=== PATIENT | female | born 1955 | race African-American/Black ===

== ENCOUNTER 2016-10-16 02:37 | Emergency (ER) | payer MEDICAID, OTHER ==
[~2016-10-16] VITALS: Ht 160 cm; Wt 84.1 kg
[~2016-10-16 02:37] MED LIST: ALBU18HF2 IH; ALBU6.7H INH; ATROPINE SULFATE EACHEYE; BRIM5DRO EACHEYE; BRIM5DRO RIGHTEYE; TIMOLOL BOTHEYE
[2016-10-16 06:15] LABS: BASOPHILS % 0.8 % (0.0-2.0); EOSINOPHILS % 5.2 % (0.0-5.0); HEMATOCRIT. 33.7 % (36.0-48.0); HEMOGLOBIN. 10.8 g/dL (12.0-16.0); LYMPHOCYTES % 33.4 % (20.0-50.0); MEAN CORPUSCULAR HEMOGLOBIN 27.9 pg (28.0-32.0); MEAN CORPUSCULAR HGB CONC 32.1 g/dL (31.0-37.0); MEAN CORPUSCULAR VOLUME 86.9 fL (81.0-99.0); MEAN PLATELET VOLUME 9.8 fl (7.4-10.4); MONOCYTES % 7.6 % (2.0-8.0); PLATELET 139 x1000/uL (130-400); RED BLOOD CELL COUNT 3.87 mill/uL (4.2-5.4); RED CELL DISTRIBUTION WIDTH 18.9 % (11.6-14.6); WHITE BLOOD COUNT 7.9 x1000/uL (4.5-11.0)
[2016-10-16 06:32] LABS: CHLORIDE 108 mEq/L (98-107); INDEX HEMOLYSI 1 (1-3); INDEX ICTERIC 1 (1-4); INDEX LIPEMIC 1 (1-3)
[2016-10-16 06:38] LABS: ALANINE AMINOTRANSFERASE 18 IU/L (13-61); ALBUMIN 2.9 g/dL (3.4-5.0); ANION GAP 13; CALCIUM 9.2 mg/dL (8.5-10.1); CARBON DIOXIDE 27 mEq/L (21-32); ETHANOL BLOOD < 10 mg/dL; UREA NITROGEN BLOOD 32 mg/dL (7-21)
[2016-10-16 06:40] LABS: eGFR 43 mL/min (>60)
[2016-10-16] MEDS ORDERED: ACETAMINOPHEN 500MG TABLET PO ONE (07:30)
[2016-10-16 07:51] LABS: GLUCOSE URINE NEGATIVE (NEGATIVE); KETONES URINE NEGATIVE (NEGATIVE); LEUKOCYTE ESTERASE URINE NEGATIVE (NEGATIVE); NITRITE URINE NEGATIVE (NEGATIVE); OCCULT BLOOD URINE NEGATIVE (NEGATIVE); PROTEIN URINE 2+ (NEGATIVE); SPECIFIC GRAVITY URINE 1.009 (1.005-1.030); UROBILINOGEN URINE 0.2 E.U./dL (0.2-1.0)
[2016-10-16 07:52] LABS: CLARITY URINE CLEAR (CLEAR); COLOR URINE PALE YELLOW (YELLOW)
[2016-10-16 08:00] LABS: *AMPHETAMINES SCREEN URINE NEGATIVE (NEGATIVE); *BARBITURATES SCREEN URINE NEGATIVE (NEGATIVE); *BENZODIAZEPINES SCREEN URINE NEGATIVE (NEGATIVE); *COCAINE SCREEN URINE NEGATIVE (NEGATIVE); CANNABINOID URINE SCREEN NEGATIVE (NEGATIVE); ECSTASY MDMA SCREEN URINE NEGATIVE (NEGATIVE); METHADONE URINE SCREEN NEGATIVE (NEGATIVE); OPIATES URINE SCREEN NEGATIVE (NEGATIVE); PHENCYCLIDINE URINE SCREEN NEGATIVE (NEGATIVE)
[2016-10-16 08:02] LABS: RBC URINE 0-2 /hpf (0-2); WBC URINE 0-2 /hpf (0-2)
[2016-10-16 08:03] LABS: SQUAMOUS EPITHELIAL CELL URINE FEW /lpf (RARE/1+)
[2016-10-16 08:04] LABS: BACTERIA URINE TRACE
[2016-10-16] MEDS ORDERED: MORPHINE SULFATE 10 MG/ML CPJ IM ONE (08:30)
[2016-10-16] MEDS ORDERED: ONDANSETRON 4MG ODT PO ONE (08:30)
[2016-10-16 09:43] VITALS: BP 162/68
== END 2016-10-16 10:36 | disposition home or self-care (01) ==
LOC: ER 02:37
DX: R51 Headache (principal); G89.29 Other chronic pain; M54.2 Cervicalgia; M54.5 Low back pain; M25.511 Pain in right shoulder; N28.9 Disorder of kidney and ureter, unspecified; D64.9 Anemia, unspecified; J45.909 Unspecified asthma, uncomplicated; Z88.0 Allergy status to penicillin; Z88.8 Allergy status to other drugs, medicaments and biological substances; Z88.5 Allergy status to narcotic agent; Z88.6 Allergy status to analgesic agent; Z88.1 Allergy status to other antibiotic agents
CPT/HCPCS: 36415; 70450; 80053; 80305; 81001; 85025; 96372; 99285; G0482; J2270; Q0162; Z7610

== ENCOUNTER 2017-02-24 12:47 | Emergency (ER) | payer OTHER ==
[~2017-02-24] VITALS: Ht 170.2 cm; Wt 80.0 kg
[2017-02-24] MEDS ORDERED: ONDANSETRON HCL 4MG/2ML VIAL IV STA (22:58)
[2017-02-24] MEDS ORDERED: PANTOPRAZOLE SODIUM 40 MG/VIAL IV STA (22:58)
[2017-02-24] MEDS ORDERED: SODIUM CHLORIDE 0.9% 1,000 ML IV ONE (22:58)
[2017-02-24 23:47] LABS: BASOPHILS % 0.6 % (0.0-2.0); EOSINOPHILS % 4.7 % (0.0-5.0); HEMATOCRIT. 34.9 % (36.0-48.0); HEMOGLOBIN. 11.1 g/dL (12.0-16.0); LYMPHOCYTES % 28.6 % (20.0-50.0); MEAN CORPUSCULAR VOLUME 87.9 fL (81.0-99.0); NEUTROPHILS % 59.1 % (40.0-76.0); PLATELET 160 x1000/uL (130-400); RED BLOOD CELL COUNT 3.97 mill/uL (4.2-5.4); RED CELL DISTRIBUTION WIDTH 16.2 % (11.6-14.6)
[2017-02-24 23:55] LABS: CARBON DIOXIDE 28 mEq/L (21-32); CHLORIDE 110 mEq/L (98-107); ETHANOL BLOOD < 10 mg/dL; TROPONIN I < 0.02 ng/mL (0.00-0.04)
[2017-02-25] MEDS ORDERED: SODIUM CHLORIDE 0.9% 1,000 ML IV ONE (00:56)
[2017-02-25 01:51] LABS: CLARITY URINE CLEAR (CLEAR); COLOR URINE YELLOW (YELLOW); GLUCOSE URINE NEGATIVE (NEGATIVE); KETONES URINE NEGATIVE (NEGATIVE); LEUKOCYTE ESTERASE URINE TRACE (NEGATIVE); NITRITE URINE NEGATIVE (NEGATIVE); OCCULT BLOOD URINE NEGATIVE (NEGATIVE); PROTEIN URINE 3+ (NEGATIVE); SPECIFIC GRAVITY URINE 1.011 (1.005-1.030); UROBILINOGEN URINE 0.2 E.U./dL (0.2-1.0)
[2017-02-25 02:03] LABS: *AMPHETAMINES SCREEN URINE NEGATIVE (NEGATIVE); *BARBITURATES SCREEN URINE NEGATIVE (NEGATIVE); *BENZODIAZEPINES SCREEN URINE NEGATIVE (NEGATIVE); *COCAINE SCREEN URINE NEGATIVE (NEGATIVE); CANNABINOID URINE SCREEN NEGATIVE (NEGATIVE); METHADONE URINE SCREEN NEGATIVE (NEGATIVE); OPIATES URINE SCREEN NEGATIVE (NEGATIVE); PHENCYCLIDINE URINE SCREEN NEGATIVE (NEGATIVE)
[2017-02-25] MEDS ORDERED: AZITHROMYCIN 250 MG TABLET PO NR (02:15)
[2017-02-25] MEDS ORDERED: CEFTRIAXONE 1 G PREMIX 50 ML IV NR (02:15)
[2017-02-25] MEDS ORDERED: CEFTRIAXONE SODIUM 1 G/VIAL IV ONE (02:15)
[2017-02-25 06:17] VITALS: BP 136/88
== END 2017-02-25 07:03 | disposition home or self-care (01) ==
LOC: ER 13:07
DX: K21.9 Gastro-esophageal reflux disease without esophagitis (principal); N39.0 Urinary tract infection, site not specified; E86.0 Dehydration; J69.0 Pneumonitis due to inhalation of food and vomit; N28.9 Disorder of kidney and ureter, unspecified; J45.909 Unspecified asthma, uncomplicated; Z98.890 Other specified postprocedural states; Z88.0 Allergy status to penicillin; Z90.710 Acquired absence of both cervix and uterus
CPT/HCPCS: 36415; 71010; 74176; 80053; 80305; 81001; 83605; 83690; 84484; 85025; 93005; 96361; 96374; 99285; C1893; C9113; G0482; J2405; J7030; Z7610

== ENCOUNTER 2017-02-25 07:18 | Emergency (ER) | payer OTHER ==
[~2017-02-25] VITALS: Ht 160 cm; Wt 82.0 kg
[2017-02-25 07:32] VITALS: BP 157/72
== END 2017-02-25 09:00 | disposition home or self-care (01) ==
LOC: ER 08:49
DX: R06.00 Dyspnea, unspecified (principal); J45.909 Unspecified asthma, uncomplicated; H40.9 Unspecified glaucoma; Z88.0 Allergy status to penicillin; Z88.6 Allergy status to analgesic agent; Z91.041 Radiographic dye allergy status; Z87.19 Personal history of other diseases of the digestive system; Z90.49 Acquired absence of other specified parts of digestive tract
CPT/HCPCS: 99281

== ENCOUNTER 2018-12-14 00:31 | Emergency (ER) | payer MEDICARE, MEDICAID ==
[~2018-12-14] VITALS: Ht 160 cm; Wt 80.0 kg
[2018-12-14] MEDS ORDERED: ACETAMINOPHEN 325MG TABLET PO ONE (04:45)
[2018-12-14] MEDS ORDERED: GABAPENTIN 300MG CAPSULE PO ONE (09:30)
[2018-12-14 13:39] VITALS: BP 124/54
== END 2018-12-14 14:12 | disposition home or self-care (01) ==
LOC: ER 00:31
DX: S00.03XA Contusion of scalp, initial encounter (principal); M54.5 Low back pain; M25.512 Pain in left shoulder; M25.511 Pain in right shoulder; H54.62 Unqualified visual loss, left eye, normal vision right eye; Z88.0 Allergy status to penicillin; Z88.6 Allergy status to analgesic agent; Z88.5 Allergy status to narcotic agent; Z90.49 Acquired absence of other specified parts of digestive tract; Z98.890 Other specified postprocedural states; Z87.19 Personal history of other diseases of the digestive system; Y04.0XXA Assault by unarmed brawl or fight, initial encounter; Y93.89 Activity, other specified; Y92.89 Other specified places as the place of occurrence of the external cause
CPT/HCPCS: 70450; 70486; 71045; 72125; 73030; 73522; 99284; Z7610

== ENCOUNTER 2020-04-29 15:59 | Emergency (ER) | payer MEDICARE, MEDICAID ==
[~2020-04-29] VITALS: Ht 160 cm; Wt 71.0 kg
[~2020-04-29 15:59] MED LIST changes: -ALBU6.7H INH; +ALBU6.7H11 INH
[2020-04-29] MEDS ORDERED: ACETAMINOPHEN 325MG TABLET PO ONE (17:45)
[2020-04-29 19:10] LABS: EOSINOPHILS % 5.4 % (0.0-5.0); HEMATOCRIT. 26.8 % (36.0-48.0); HEMOGLOBIN. 8.8 g/dL (12.0-16.0); LYMPHOCYTES % 38.6 % (20.0-50.0); MEAN CORPUSCULAR HEMOGLOBIN 28.7 pg (28.0-32.0); MEAN CORPUSCULAR VOLUME 87.6 fL (81.0-99.0); MEAN PLATELET VOLUME 8.8 fl (7.4-10.4); MONOCYTES % 6.9 % (2.0-8.0); NEUTROPHILS % 48.1 % (40.0-76.0); PLATELET 179 x1000/uL (130-400); RED BLOOD CELL COUNT 3.06 mill/uL (4.2-5.4); RED CELL DISTRIBUTION WIDTH 17.3 % (11.6-14.6)
[2020-04-29 19:14] LABS: CHLORIDE 104 mEq/L (98-107)
[2020-04-29 21:45] VITALS: BP 145/48
== END 2020-04-29 22:32 | disposition home or self-care (01) ==
LOC: ER 15:59
DX: M79.10 Myalgia, unspecified site (principal); M54.30 Sciatica, unspecified side; M25.512 Pain in left shoulder; N18.6 End stage renal disease; F11.10 Opioid abuse, uncomplicated; H54.62 Unqualified visual loss, left eye, normal vision right eye; J45.909 Unspecified asthma, uncomplicated; Z99.2 Dependence on renal dialysis; Z90.49 Acquired absence of other specified parts of digestive tract; Z98.1 Arthrodesis status; Z88.6 Allergy status to analgesic agent; Z88.5 Allergy status to narcotic agent; Z88.0 Allergy status to penicillin
CPT/HCPCS: 36415; 71045; 80053; 83880; 84484; 85025; 93005; 99285

== ENCOUNTER 2020-12-12 05:05 | Inpatient (IN) | payer MEDICARE, MEDICAID ==
[~2020-12-12] VITALS: Ht 162.6 cm; Wt 70.4 kg
[2020-12-12] MEDS ORDERED: HYDROMORPHONE HCL/PF 2MG/ML CPJ IV ONE ×2 (07:30→10:15)
[2020-12-12 08:26] LABS: BASOPHILS % 0.7 % (0.0-2.0); EOSINOPHILS % 3.2 % (0.0-5.0); HEMATOCRIT. 30.3 % (36.0-48.0); HEMOGLOBIN. 9.9 g/dL (12.0-16.0); LYMPHOCYTES % 29.6 % (20.0-50.0); MEAN CORPUSCULAR HEMOGLOBIN 29.6 pg (28.0-32.0); MEAN CORPUSCULAR VOLUME 90.9 fL (81.0-99.0); MEAN PLATELET VOLUME 8.8 fl (7.4-10.4); NEUTROPHILS % 59.5 % (40.0-76.0); PLATELET 145 x1000/uL (130-400); RED BLOOD CELL COUNT 3.33 mill/uL (4.2-5.4); RED CELL DISTRIBUTION WIDTH 17.1 % (11.6-14.6)
[2020-12-12 08:30] LABS: CHLORIDE 104 mEq/L (98-107)
[2020-12-12 09:28] LABS: CLARITY URINE CLEAR (CLEAR); COLOR URINE YELLOW (YELLOW); KETONES URINE NEGATIVE (NEGATIVE); LEUKOCYTE ESTERASE URINE TRACE (NEGATIVE); NITRITE URINE NEGATIVE (NEGATIVE); OCCULT BLOOD URINE NEGATIVE (NEGATIVE); PROTEIN URINE 3+ (NEGATIVE); SPECIFIC GRAVITY URINE 1.011 (1.005-1.030); UROBILINOGEN URINE 0.2 E.U./dL (0.2-1.0)
[2020-12-12] MEDS: HYDROMORPHONE HCL/PF 2MG/ML CPJ IV PRN ×2 (13:22→21:57)
[2020-12-12] MEDS ORDERED: IPRATROPIUM/ALBUTEROL 0.5-3(2.5)MG/3ML NEB HHN PRN (15:00)
[2020-12-12] MEDS ORDERED: ONDANSETRON HCL 4MG/2ML INJ IV PRN (15:00)
[2020-12-12 18:00] VITALS: BP 139/66
[2020-12-12] MEDS ORDERED: MORPHINE SULFATE 2 MG/ML CPJ (NOT FOR IM USE) IV PRN (19:30)
[2020-12-12] MEDS ORDERED: DEXTROSE 50% WATER 50ML SYRINGE IV PRN (19:30)
[2020-12-12 20:00] VITALS: BP_SYST 127; BP_SYST 140; BP_DIAS 36; BP_DIAS 46
[2020-12-12] MEDS: OXYCODONE HCL 5MG TABLET PO PRN (20:46)
[2020-12-12] MEDS: INSULIN LISPRO 100 UNITS/ML SUBCUT SCH (21:00)
[2020-12-12] MEDS: BLOOD SUGAR DIAGNOSTIC STRIP TEST SCH (21:35)
[2020-12-12] MEDS ORDERED: DIPHENHYDRAMINE 50MG CAPSULE PO PRN (21:45)
[2020-12-13] VITALS: BP 122/47
[2020-12-13] MEDS: OXYCODONE HCL 5MG TABLET PO PRN (02:34)
[2020-12-13 04:00] VITALS: BP 134/55
[2020-12-13] MEDS ORDERED: DIPHENHYDRAMINE 50MG/ML VIAL IV PRN (04:45)
[2020-12-13] MEDS: HYDROMORPHONE HCL/PF 2MG/ML CPJ IV PRN ×3 (06:03→18:34)
[2020-12-13] MEDS: BLOOD SUGAR DIAGNOSTIC STRIP TEST SCH ×3 (07:12→21:59)
[2020-12-13] MEDS: INSULIN LISPRO 100 UNITS/ML SUBCUT SCH ×2 (07:50→12:44)
[2020-12-13 08:00] VITALS: BP 142/40
[2020-12-13] MEDS ORDERED: AMLODIPINE 10MG TABLET PO SCH (09:00)
[2020-12-13] MEDS: AMLODIPINE 10MG TABLET PO SCH (09:13)
[2020-12-13] MEDS: SEVELAMER CARBONATE 800 MG TABLET PO SCH ×3 (09:13→18:31)
[2020-12-13] MEDS ORDERED: LORAZEPAM 2MG/ML CPJ IV NR (10:00)
[2020-12-13 12:00] VITALS: BP 144/45
[2020-12-13 16:00] VITALS: BP 136/45
[2020-12-13] MEDS ORDERED: DEXTROSE 50% WATER 50ML SYRINGE IV PRN (18:00)
[2020-12-13 20:00] VITALS: BP 134/53
[2020-12-14] VITALS: BP 106/61
[2020-12-14] MEDS: HYDROMORPHONE HCL/PF 2MG/ML CPJ IV PRN ×5 (01:59→22:06)
[2020-12-14 04:00] VITALS: BP 137/50
[2020-12-14] MEDS: BLOOD SUGAR DIAGNOSTIC STRIP TEST SCH ×4 (06:28→21:00)
[2020-12-14 08:00] VITALS: BP 144/44
[2020-12-14] MEDS: SEVELAMER CARBONATE 800 MG TABLET PO SCH ×3 (08:34→17:17)
[2020-12-14] MEDS: AMLODIPINE 10MG TABLET PO SCH (08:34)
[2020-12-14] MEDS: OXYCODONE HCL 5MG TABLET PO PRN (08:43)
[2020-12-14 12:00] VITALS: BP 135/50
[2020-12-14 16:00] VITALS: BP 141/73
[2020-12-14] MEDS ORDERED: AMLO10TA80 PO (16:25)
[2020-12-14] MEDS ORDERED: OXYCODONE HCL 5MG TABLET PO PRN (19:00)
[2020-12-14 20:00] VITALS: BP 136/42
[2020-12-15] VITALS: BP 132/36
[2020-12-15] MEDS: HYDROMORPHONE HCL/PF 2MG/ML CPJ IV PRN ×3 (02:52→13:57)
[2020-12-15 04:00] VITALS: BP 150/45
[2020-12-15 06:49] LABS: BASOPHILS % 0.7 % (0.0-2.0); EOSINOPHILS % 7.5 % (0.0-5.0); HEMOGLOBIN. 9.4 g/dL (12.0-16.0); LYMPHOCYTES % 36.1 % (20.0-50.0); MEAN CORPUSCULAR HEMOGLOBIN 29.6 pg (28.0-32.0); MEAN CORPUSCULAR VOLUME 90.6 fL (81.0-99.0); MEAN PLATELET VOLUME 8.3 fl (7.4-10.4); MONOCYTES % 7.4 % (2.0-8.0); NEUTROPHILS % 48.3 % (40.0-76.0); PLATELET 142 x1000/uL (130-400); RED CELL DISTRIBUTION WIDTH 17.3 % (11.6-14.6)
[2020-12-15 06:59] LABS: PHOSPHORUS 2.4 mg/dL (2.5-4.9)
[2020-12-15] MEDS: BLOOD SUGAR DIAGNOSTIC STRIP TEST SCH ×2 (07:40→13:13)
[2020-12-15] MEDS: AMLODIPINE 10MG TABLET PO SCH (08:39)
[2020-12-15] MEDS ORDERED: OXYC-662 MT (11:54)
[2020-12-15] MEDS: SEVELAMER CARBONATE 800 MG TABLET PO SCH (13:36)
[2020-12-15 15:37] VITALS: BP 130/62
== END 2020-12-15 18:25 | disposition home or self-care (01) | DRG 682 ==
LOC: ER 05:05 → 6EST 13:32 → ENRESERV 15:33
PROVIDERS: ADMIT Internal Medicine; ATTEND Internal Medicine
PROC: 5A1D70Z Performance of Urinary Filtration, Intermittent, Less than 6 Hours Per Day (ICD-10-PCS; principal; 2020-12-15)
DX: I12.0 Hypertensive chronic kidney disease with stage 5 chronic kidney disease or end stage renal disease (principal); N18.6 End stage renal disease; M46.1 Sacroiliitis, not elsewhere classified; I16.0 Hypertensive urgency; D63.8 Anemia in other chronic diseases classified elsewhere; E87.5 Hyperkalemia; J43.9 Emphysema, unspecified; J45.909 Unspecified asthma, uncomplicated; Z90.49 Acquired absence of other specified parts of digestive tract; Z99.2 Dependence on renal dialysis; E78.00 Pure hypercholesterolemia, unspecified; Z88.6 Allergy status to analgesic agent; Z88.0 Allergy status to penicillin; Z88.8 Allergy status to other drugs, medicaments and biological substances; Z98.891 History of uterine scar from previous surgery; Z59.0 Homelessness
CPT/HCPCS: 36415; 72148; 72195; 73560; 74176; 80048; 80053; 81003; 82962; 83036; 84100; 85025; 97162; 99285; J1170; J1200; J2060

== ENCOUNTER 2021-03-05 09:09 | Inpatient (IN) | payer MEDICARE, MEDICAID ==
[~2021-03-05] VITALS: Ht 162.6 cm; Wt 72.6 kg
[~2021-03-05 09:09] MED LIST changes: -ALBU6.7H11 INH; +ALBU6.7H15 INH; +AMLO10TA80 PO; +OXYC-662 MT
[2021-03-05] MEDS ORDERED: ONDANSETRON HCL 4MG/2ML INJ IV STA (10:20)
[2021-03-05] MEDS ORDERED: SODIUM CHLORIDE 0.9% 1,000 ML IV ONE (10:30)
[2021-03-05 11:47] LABS: BASOPHILS % 0.9 % (0.0-2.0); EOSINOPHILS % 6.8 % (0.0-5.0); HEMATOCRIT. 26.5 % (36.0-48.0); HEMOGLOBIN. 8.8 g/dL (12.0-16.0); LYMPHOCYTES % 25.7 % (20.0-50.0); MEAN CORPUSCULAR HEMOGLOBIN 28.5 pg (28.0-32.0); MEAN CORPUSCULAR VOLUME 85.6 fL (81.0-99.0); MEAN PLATELET VOLUME 8.2 fl (7.4-10.4); MONOCYTES % 5.3 % (2.0-8.0); NEUTROPHILS % 61.3 % (40.0-76.0); PLATELET 129 x1000/uL (130-400); RED BLOOD CELL COUNT 3.09 mill/uL (4.2-5.4); RED CELL DISTRIBUTION WIDTH 18.6 % (11.6-14.6)
[2021-03-05 11:54] LABS: CHLORIDE 110 mEq/L (98-107)
[2021-03-05] MEDS ORDERED: DEXTROSE 50% WATER 50ML SYRINGE IV ONE (12:30)
[2021-03-05] MEDS ORDERED: SODIUM POLYSTYRENE SULFONATE 15 G/60 ML BOT PO ONE (12:30)
[2021-03-05] MEDS ORDERED: ALBUTEROL (0.083%) 2.5MG/3ML NEB HHN ONE (12:30)
[2021-03-05] MEDS ORDERED: INSULIN REGULAR (HUMULIN R) 300UNITS/3ML VIAL IV ONE (12:30)
[2021-03-05] MEDS ORDERED: SODIUM BICARBONATE 8.4% 1 MEQ/ML 50ML SYR IV ONE (12:30)
[2021-03-05 15:17] LABS: TOTAL IRON BINDING CAPACITY 205 ug/dL (250-450)
[2021-03-05 15:31] LABS: FERRITIN 188 ng/mL (10-291)
[2021-03-05] MEDS ORDERED: ONDANSETRON HCL 4MG/2ML INJ IV PRN (17:00)
[2021-03-05 17:25] LABS: HEPATITIS B SURFACE ANTIGEN REACTIVE PEND CONFIR
[2021-03-05] MEDS: AMLODIPINE 10MG TABLET PO SCH (17:26)
[2021-03-05 20:00] VITALS: BP 199/91
[2021-03-05] MEDS: METOPROLOL TARTRATE 25MG TABLET PO SCH (21:22)
[2021-03-05] MEDS ORDERED: PROT40 MT (21:54)
[2021-03-05] MEDS ORDERED: ATOR40TA70 MT (21:54)
[2021-03-05] MEDS: DIPHENHYDRAMINE 25MG CAPSULE PO PRN (23:32)
[2021-03-05] MEDS: MORPHINE SULFATE 2 MG/ML CPJ (NOT FOR IM USE) IV PRN (23:32)
[2021-03-06] VITALS (7 sets, daily range): BP systolic 129–175; BP diastolic 63–88
[2021-03-06] MEDS: MORPHINE SULFATE 2 MG/ML CPJ (NOT FOR IM USE) IV PRN ×3 (04:45→20:43)
[2021-03-06] MEDS: DIPHENHYDRAMINE 25MG CAPSULE PO PRN ×3 (04:48→20:48)
[2021-03-06] MEDS: AMLODIPINE 10MG TABLET PO SCH (09:00)
[2021-03-06] MEDS ORDERED: HEPARIN SODIUM 1,000 UNIT/1ML VIAL IV SCH (09:00)
[2021-03-06] MEDS: METOPROLOL TARTRATE 25MG TABLET PO SCH ×2 (09:00→20:36)
[2021-03-06] MEDS ORDERED: CEFTRIAXONE 1 G PREMIX 50 ML IV SCH (10:00)
[2021-03-06 10:05] LABS: BASOPHILS % 0.7 % (0.0-2.0); EOSINOPHILS % 5.6 % (0.0-5.0); HEMATOCRIT. 26.2 % (36.0-48.0); HEMOGLOBIN. 8.8 g/dL (12.0-16.0); LYMPHOCYTES % 22.5 % (20.0-50.0); MEAN CORPUSCULAR HEMOGLOBIN 28.6 pg (28.0-32.0); MEAN CORPUSCULAR VOLUME 85.1 fL (81.0-99.0); MEAN PLATELET VOLUME 7.8 fl (7.4-10.4); MONOCYTES % 5.3 % (2.0-8.0); NEUTROPHILS % 65.9 % (40.0-76.0); PLATELET 122 x1000/uL (130-400); RED BLOOD CELL COUNT 3.08 mill/uL (4.2-5.4); RED CELL DISTRIBUTION WIDTH 18.8 % (11.6-14.6)
[2021-03-06] MEDS ORDERED: NALOXONE HCL 0.4MG/ML VIAL IV PRN (10:15)
[2021-03-06 10:31] LABS: CHLORIDE 113 mEq/L (98-107)
[2021-03-06 10:41] LABS: PHOSPHORUS 5.6 mg/dL (2.5-4.9)
[2021-03-06 10:58] LABS: CLARITY URINE CLEAR (CLEAR); COLOR URINE YELLOW (YELLOW); KETONES URINE NEGATIVE (NEGATIVE); LEUKOCYTE ESTERASE URINE NEGATIVE (NEGATIVE); NITRITE URINE NEGATIVE (NEGATIVE); OCCULT BLOOD URINE TRACE (NEGATIVE); PH URINE 8.5 (4.5-8.0); PROTEIN URINE 3+ (NEGATIVE); UROBILINOGEN URINE 0.2 E.U./dL (0.2-1.0)
[2021-03-06 11:16] LABS: METHADONE URINE SCREEN NEGATIVE (NEGATIVE)
[2021-03-06 11:17] LABS: *AMPHETAMINES SCREEN URINE NEGATIVE (NEGATIVE); *BARBITURATES SCREEN URINE NEGATIVE (NEGATIVE); *BENZODIAZEPINES SCREEN URINE NEGATIVE (NEGATIVE); *COCAINE SCREEN URINE NEGATIVE (NEGATIVE); CANNABINOID URINE SCREEN NEGATIVE (NEGATIVE); OPIATES URINE SCREEN PRESUMTIVE POSITIVE (NEGATIVE); PHENCYCLIDINE URINE SCREEN NEGATIVE (NEGATIVE)
[2021-03-06] MEDS ORDERED: VANCOMYCIN 1250MG in DEXTROSE 5% WATER 250ML IV NR (13:00)
[2021-03-06] MEDS: CEFTRIAXONE 1,000 MG in DEXTROSE 5% WATER 50 ML IV SCH (13:14)
[2021-03-06] MEDS: CALCIUM ACETATE 667MG CAPSULE PO SCH ×2 (13:57→16:49)
[2021-03-06] MEDS: CLONIDINE 0.1MG TABLET PO PRN (20:37)
[2021-03-07 04:00] VITALS: BP 143/77
[2021-03-07] MEDS: DIPHENHYDRAMINE 25MG CAPSULE PO PRN ×2 (05:02→17:28)
[2021-03-07] MEDS: MORPHINE SULFATE 2 MG/ML CPJ (NOT FOR IM USE) IV PRN ×4 (05:03→23:36)
[2021-03-07 07:30] LABS: BASOPHILS % 0.8 % (0.0-2.0); HEMATOCRIT. 26.4 % (36.0-48.0); HEMOGLOBIN. 8.7 g/dL (12.0-16.0); LYMPHOCYTES % 30.5 % (20.0-50.0); MEAN CORPUSCULAR VOLUME 85.4 fL (81.0-99.0); MEAN PLATELET VOLUME 7.4 fl (7.4-10.4); MONOCYTES % 8.4 % (2.0-8.0); NEUTROPHILS % 52.3 % (40.0-76.0); PLATELET 105 x1000/uL (130-400); RED BLOOD CELL COUNT 3.09 mill/uL (4.2-5.4)
[2021-03-07 08:00] LABS: PHOSPHORUS 5.2 mg/dL (2.5-4.9)
[2021-03-07] MEDS: AMLODIPINE 10MG TABLET PO SCH (08:54)
[2021-03-07] MEDS: CALCIUM ACETATE 667MG CAPSULE PO SCH ×3 (08:54→17:27)
[2021-03-07] MEDS: METOPROLOL TARTRATE 25MG TABLET PO SCH ×2 (08:55→20:49)
[2021-03-07 11:31] VITALS: BP 138/59
[2021-03-07] MEDS ORDERED: AMLODIPINE 5MG TABLET PO SCH (12:00)
[2021-03-07] MEDS ORDERED: SODIUM POLYSTYRENE SULFONATE 15 G/60 ML BOT PO NR (13:00)
[2021-03-07] MEDS: CEFTRIAXONE 1,000 MG in DEXTROSE 5% WATER 50 ML IV SCH (13:06)
[2021-03-07 20:00] VITALS: BP 168/69
[2021-03-08] VITALS (7 sets, daily range): BP systolic 118–189; BP diastolic 50–71
[2021-03-08] MEDS: CLONIDINE 0.1MG TABLET PO PRN (05:02)
[2021-03-08] MEDS: MORPHINE SULFATE 2 MG/ML CPJ (NOT FOR IM USE) IV PRN ×2 (05:16→13:15)
[2021-03-08] MEDS: AMLODIPINE 10MG TABLET PO SCH (09:39)
[2021-03-08] MEDS: CALCIUM ACETATE 667MG CAPSULE PO SCH ×3 (09:39→16:45)
[2021-03-08] MEDS: METOPROLOL TARTRATE 25MG TABLET PO SCH ×2 (09:40→20:35)
[2021-03-08] MEDS ORDERED: CALC667C PO (10:05)
[2021-03-08] MEDS ORDERED: METO25TA6 PO (10:05)
[2021-03-08] MEDS ORDERED: AMLO10TA80 PO (10:05)
[2021-03-08] MEDS ORDERED: ACETAMINOPHEN 325MG TABLET PO PRN (13:45)
[2021-03-08] MEDS: LACTULOSE 20G/30ML UDC PO SCH ×2 (13:45→16:45)
[2021-03-08] MEDS ORDERED: HEPARIN SODIUM 1,000 UNIT/1ML VIAL IV NR (14:00)
[2021-03-08 14:41] LABS: BASOPHILS % 0.9 % (0.0-2.0); EOSINOPHILS % 9.6 % (0.0-5.0); HEMATOCRIT. 26.4 % (36.0-48.0); HEMOGLOBIN. 8.4 g/dL (12.0-16.0); LYMPHOCYTES % 26.7 % (20.0-50.0); MEAN CORPUSCULAR HEMOGLOBIN 27.7 pg (28.0-32.0); MEAN CORPUSCULAR VOLUME 86.9 fL (81.0-99.0); MEAN PLATELET VOLUME 8.2 fl (7.4-10.4); NEUTROPHILS % 54.8 % (40.0-76.0); PLATELET 93 x1000/uL (130-400); RED BLOOD CELL COUNT 3.04 mill/uL (4.2-5.4); RED CELL DISTRIBUTION WIDTH 18.9 % (11.6-14.6)
[2021-03-08 14:46] LABS: CHLORIDE 108 mEq/L (98-107)
[2021-03-08 14:52] LABS: PHOSPHORUS 4.1 mg/dL (2.5-4.9)
[2021-03-08] MEDS: CEFTRIAXONE 1,000 MG in DEXTROSE 5% WATER 50 ML IV SCH (16:44)
[2021-03-08] MEDS: HYDRALAZINE HCL 50MG TABLET PO SCH (20:36)
[2021-03-08] MEDS ORDERED: PROMETHAZINE HCL 25MG TABLET PO PRN (21:00)
[2021-03-09 04:00] VITALS: BP 192/80
[2021-03-09] MEDS: CLONIDINE 0.1MG TABLET PO PRN (05:26)
[2021-03-09 08:00] VITALS: BP 143/71
[2021-03-09] MEDS: METOPROLOL TARTRATE 25MG TABLET PO SCH ×2 (08:56→21:15)
[2021-03-09] MEDS: AMLODIPINE 10MG TABLET PO SCH (08:56)
[2021-03-09] MEDS: HYDRALAZINE HCL 50MG TABLET PO SCH ×3 (08:56→21:15)
[2021-03-09] MEDS: CALCIUM ACETATE 667MG CAPSULE PO SCH ×3 (08:57→17:15)
[2021-03-09] MEDS: MORPHINE SULFATE 2 MG/ML CPJ (NOT FOR IM USE) IV PRN ×2 (10:34→17:15)
[2021-03-09 12:00] VITALS: BP 133/61
[2021-03-09] MEDS: CEFTRIAXONE 1,000 MG in DEXTROSE 5% WATER 50 ML IV SCH (12:00)
[2021-03-09 16:00] VITALS: BP 159/69
[2021-03-09] MEDS: LEVOFLOXACIN 250MG TABLET PO SCH (17:15)
[2021-03-09] MEDS: DIPHENHYDRAMINE 25MG CAPSULE PO PRN ×2 (17:23→23:34)
[2021-03-09 20:00] VITALS: BP 123/48
[2021-03-10] VITALS: BP 130/53
[2021-03-10] MEDS: MORPHINE SULFATE 2 MG/ML CPJ (NOT FOR IM USE) IV PRN ×4 (00:42→23:13)
[2021-03-10 04:00] VITALS: BP 161/67
[2021-03-10] MEDS: CALCIUM ACETATE 667MG CAPSULE PO SCH ×3 (06:42→17:16)
[2021-03-10 08:00] VITALS: BP 157/69
[2021-03-10] MEDS: HYDRALAZINE HCL 50MG TABLET PO SCH ×2 (09:00→20:54)
[2021-03-10] MEDS: METOPROLOL TARTRATE 25MG TABLET PO SCH ×2 (09:00→20:54)
[2021-03-10] MEDS: AMLODIPINE 10MG TABLET PO SCH (09:00)
[2021-03-10] MEDS: DIPHENHYDRAMINE 25MG CAPSULE PO PRN ×3 (11:49→23:12)
[2021-03-10 12:00] VITALS: BP 163/61
[2021-03-10 16:00] VITALS: BP 143/49
[2021-03-10 20:00] VITALS: BP 141/62
[2021-03-11] VITALS: BP 113/76
[2021-03-11 04:00] VITALS: BP 160/69
[2021-03-11 07:40] LABS: BASOPHILS % 0.7 % (0.0-2.0); EOSINOPHILS % 9.6 % (0.0-5.0); HEMATOCRIT. 24.7 % (36.0-48.0); LYMPHOCYTES % 31.3 % (20.0-50.0); MEAN CORPUSCULAR HEMOGLOBIN 27.9 pg (28.0-32.0); MEAN CORPUSCULAR VOLUME 86.7 fL (81.0-99.0); MEAN PLATELET VOLUME 8.5 fl (7.4-10.4); MONOCYTES % 7.5 % (2.0-8.0); NEUTROPHILS % 50.9 % (40.0-76.0); PLATELET 103 x1000/uL (130-400); RED BLOOD CELL COUNT 2.85 mill/uL (4.2-5.4); RED CELL DISTRIBUTION WIDTH 19.1 % (11.6-14.6)
[2021-03-11 07:42] LABS: CHLORIDE 108 mEq/L (98-107)
[2021-03-11 07:47] LABS: PHOSPHORUS 5.3 mg/dL (2.5-4.9)
[2021-03-11 08:00] VITALS: BP 133/68
[2021-03-11] MEDS: HYDRALAZINE HCL 50MG TABLET PO SCH ×2 (09:00→21:45)
[2021-03-11] MEDS: DIPHENHYDRAMINE 25MG CAPSULE PO PRN ×2 (09:06→21:45)
[2021-03-11] MEDS: AMLODIPINE 10MG TABLET PO SCH (09:07)
[2021-03-11] MEDS: CALCIUM ACETATE 667MG CAPSULE PO SCH ×3 (09:07→18:40)
[2021-03-11] MEDS: METOPROLOL TARTRATE 25MG TABLET PO SCH ×2 (09:07→21:45)
[2021-03-11] MEDS: MORPHINE SULFATE 2 MG/ML CPJ (NOT FOR IM USE) IV PRN (09:11)
[2021-03-11 12:00] VITALS: BP 138/71
[2021-03-11 12:53] LABS: HEPATITIS B SURFACE ANTIGEN REACTIVE PEND CONFIR
[2021-03-11 16:00] VITALS: BP 148/60
[2021-03-11] MEDS: LEVOFLOXACIN 250MG TABLET PO SCH (18:40)
[2021-03-11 20:00] VITALS: BP 140/60
[2021-03-11] MEDS: HYDROCODONE/ACETAMINOPHEN 5/325MG TABLET PO PRN (21:46)
[2021-03-12] VITALS: BP 108/69
[2021-03-12] MEDS: DIPHENHYDRAMINE 25MG CAPSULE PO PRN (02:56)
[2021-03-12] MEDS: HYDROCODONE/ACETAMINOPHEN 5/325MG TABLET PO PRN (02:56)
[2021-03-12 04:29] VITALS: BP 126/64
[2021-03-12 08:00] VITALS: BP 139/63
[2021-03-12 08:36] LABS: BASOPHILS % 0.9 % (0.0-2.0); EOSINOPHILS % 10.3 % (0.0-5.0); HEMATOCRIT. 30.1 % (36.0-48.0); HEMOGLOBIN. 9.3 g/dL (12.0-16.0); LYMPHOCYTES % 29.9 % (20.0-50.0); MEAN CORPUSCULAR HEMOGLOBIN 27.5 pg (28.0-32.0); MEAN CORPUSCULAR VOLUME 89.3 fL (81.0-99.0); MEAN PLATELET VOLUME 9.1 fl (7.4-10.4); MONOCYTES % 11.2 % (2.0-8.0); NEUTROPHILS % 47.7 % (40.0-76.0); PLATELET 120 x1000/uL (130-400); RED BLOOD CELL COUNT 3.37 mill/uL (4.2-5.4); RED CELL DISTRIBUTION WIDTH 19.5 % (11.6-14.6)
[2021-03-12 09:04] LABS: PHOSPHORUS 5.5 mg/dL (2.5-4.9)
[2021-03-12] MEDS: HYDRALAZINE HCL 50MG TABLET PO SCH ×2 (10:05→20:21)
[2021-03-12] MEDS: AMLODIPINE 10MG TABLET PO SCH (10:05)
[2021-03-12] MEDS: METOPROLOL TARTRATE 25MG TABLET PO SCH ×2 (10:06→20:21)
[2021-03-12] MEDS: CALCIUM ACETATE 667MG CAPSULE PO SCH ×3 (10:06→17:40)
[2021-03-12 12:00] VITALS: BP 141/68
[2021-03-12 16:00] VITALS: BP 147/70
[2021-03-12 20:00] VITALS: BP 150/52
[2021-03-12] MEDS: LIDOCAINE 5% PATCH TOP SCH (21:30)
[2021-03-12] MEDS: GABAPENTIN 100MG CAPSULE PO SCH (22:00)
[2021-03-12] MEDS ORDERED: NALOXONE HCL 0.4MG/ML VIAL IV PRN (22:45)
[2021-03-13] VITALS: BP 162/86
[2021-03-13 04:00] VITALS: BP 175/73
[2021-03-13] MEDS: GABAPENTIN 100MG CAPSULE PO SCH ×3 (05:49→21:50)
[2021-03-13] MEDS: CLONIDINE 0.1MG TABLET PO PRN (05:49)
[2021-03-13 08:00] VITALS: BP 129/62
[2021-03-13 08:18] LABS: BASOPHILS % 0.9 % (0.0-2.0); HEMATOCRIT. 31.3 % (36.0-48.0); HEMOGLOBIN. 9.8 g/dL (12.0-16.0); LYMPHOCYTES % 24.9 % (20.0-50.0); MEAN CORPUSCULAR HEMOGLOBIN 27.2 pg (28.0-32.0); MEAN CORPUSCULAR VOLUME 87.4 fL (81.0-99.0); MEAN PLATELET VOLUME 9.4 fl (7.4-10.4); MONOCYTES % 8.4 % (2.0-8.0); NEUTROPHILS % 60.8 % (40.0-76.0); PLATELET 126 x1000/uL (130-400); RED BLOOD CELL COUNT 3.59 mill/uL (4.2-5.4); RED CELL DISTRIBUTION WIDTH 18.9 % (11.6-14.6)
[2021-03-13 08:35] LABS: PHOSPHORUS 4.7 mg/dL (2.5-4.9)
[2021-03-13] MEDS: CALCIUM ACETATE 667MG CAPSULE PO SCH ×3 (08:54→18:00)
[2021-03-13] MEDS: HYDRALAZINE HCL 50MG TABLET PO SCH ×2 (08:54→21:00)
[2021-03-13] MEDS: METOPROLOL TARTRATE 25MG TABLET PO SCH ×2 (08:55→21:00)
[2021-03-13] MEDS: AMLODIPINE 10MG TABLET PO SCH (08:55)
[2021-03-13 12:00] VITALS: BP 112/40
[2021-03-13 16:00] VITALS: BP 94/30
[2021-03-13] MEDS: LEVOFLOXACIN 250MG TABLET PO SCH (18:00)
[2021-03-13 20:00] VITALS: BP 107/33
[2021-03-13] MEDS: LIDOCAINE 5% PATCH TOP SCH (21:30)
[2021-03-14] VITALS: BP 145/69
[2021-03-14 04:00] VITALS: BP 102/69
[2021-03-14] MEDS: GABAPENTIN 100MG CAPSULE PO SCH (05:37)
[2021-03-14 08:00] VITALS: BP 122/62
[2021-03-14] MEDS: HYDRALAZINE HCL 50MG TABLET PO SCH (09:10)
[2021-03-14] MEDS: CALCIUM ACETATE 667MG CAPSULE PO SCH (09:11)
[2021-03-14] MEDS: AMLODIPINE 10MG TABLET PO SCH (09:11)
[2021-03-14] MEDS: METOPROLOL TARTRATE 25MG TABLET PO SCH (09:11)
== END 2021-03-14 10:55 | disposition left against medical advice (07) | DRG 871 ==
LOC: ER 09:09 → 8WST 13:31 → ENRESERV 17:55
PROVIDERS: ADMIT Family Medicine; ATTEND Family Medicine
PROC: 5A1D70Z Performance of Urinary Filtration, Intermittent, Less than 6 Hours Per Day (ICD-10-PCS; principal; 2021-03-05)
PROC: 5A1D70Z Performance of Urinary Filtration, Intermittent, Less than 6 Hours Per Day (ICD-10-PCS; 2021-03-07)
PROC: 5A1D70Z Performance of Urinary Filtration, Intermittent, Less than 6 Hours Per Day (ICD-10-PCS; 2021-03-09)
PROC: 5A1D70Z Performance of Urinary Filtration, Intermittent, Less than 6 Hours Per Day (ICD-10-PCS; 2021-03-11)
DX: A41.9 Sepsis, unspecified organism (principal); N18.6 End stage renal disease; I50.41 Acute combined systolic (congestive) and diastolic (congestive) heart failure; F11.20 Opioid dependence, uncomplicated; I13.2 Hypertensive heart and chronic kidney disease with heart failure and with stage 5 chronic kidney disease, or end stage renal disease; E87.70 Fluid overload, unspecified; E87.5 Hyperkalemia; D64.9 Anemia, unspecified; J44.9 Chronic obstructive pulmonary disease, unspecified; M19.90 Unspecified osteoarthritis, unspecified site; Z53.29 Procedure and treatment not carried out because of patient's decision for other reasons; H54.8 Legal blindness, as defined in USA; Z90.710 Acquired absence of both cervix and uterus; Z91.81 History of falling; Z98.1 Arthrodesis status; Z99.2 Dependence on renal dialysis; Z91.15 Patient's noncompliance with renal dialysis; Z88.0 Allergy status to penicillin; Z88.8 Allergy status to other drugs, medicaments and biological substances; Z20.822 Contact with and (suspected) exposure to COVID-19
CPT/HCPCS: 36415; 71045; 72070; 72100; 73130; 73502; 73560; 80048; 80053; 80305; 81003; 82728; 82962; 83540; 83550; 83735; 84100; 85025; 86705; 86706; 86709; 86803; 87340; 93005; 94644; 97116; 97162; 97166; 99285; J0696; J1644; J1815; J2270; J2405; J3370; J3490; J7030; J7060; Q0163; U0003; U0005

== ENCOUNTER 2021-10-10 10:37 | Inpatient (IN) | payer OTHER, MEDICAID ==
[~2021-10-10] VITALS: Ht 162.6 cm; Wt 71.7 kg
[~2021-10-10 10:37] MED LIST changes: +ATOR40TA70 MT; +CALC667C PO; +METO25TA6 PO; +PROT40 MT
[2021-10-10] MEDS ORDERED: METHYLPREDNISOLONE SOD SUCC 125 MG/2 ML VIAL IV STA (10:55)
[2021-10-10] MEDS ORDERED: ALBUTEROL (0.083%) 2.5MG/3ML NEB HHN STA (10:55)
[2021-10-10] MEDS ORDERED: IPRATROPIUM BROMIDE (0.02%) 0.5MG/2.5ML NEB HHN STA (10:55)
[2021-10-10] MEDS ORDERED: MORPHINE SULFATE 4 MG/ML CPJ (NOT FOR IM USE) IV ONE (11:00)
[2021-10-10] MEDS ORDERED: DIPHENHYDRAMINE 50MG/ML VIAL IV ONE (11:00)
[2021-10-10] MEDS ORDERED: LEVOFLOXACIN 750MG PREMIX 150 ML IV ONE (11:45)
[2021-10-10 12:16] LABS: CHLORIDE 107 mEq/L (98-107)
[2021-10-10 12:18] LABS: BASOPHILS % 1.3 % (0.0-2.0); HEMATOCRIT. 25.3 % (36.0-48.0); HEMOGLOBIN. 8.8 g/dL (12.0-16.0); LYMPHOCYTES % 28.5 % (20.0-50.0); MEAN CORPUSCULAR VOLUME 86.8 fL (81.0-99.0); MEAN PLATELET VOLUME 7.5 fl (7.4-10.4); MONOCYTES % 6.2 % (2.0-8.0); PLATELET 125 x1000/uL (130-400); RED BLOOD CELL COUNT 2.92 mill/uL (4.2-5.4); RED CELL DISTRIBUTION WIDTH 17.4 % (11.6-14.6)
[2021-10-10] MEDS ORDERED: DILTIAZEM HCL 5MG/ML 5ML VIAL IV NR (13:30)
[2021-10-10] MEDS ORDERED: ONDANSETRON HCL 4MG/2ML INJ IV PRN (14:15)
[2021-10-10] MEDS ORDERED: MAGNESIUM/ALUMINUM HYDROXIDE/SIMETHICONE 30ML UDC PO PRN (14:15)
[2021-10-10] MEDS ORDERED: GUAIFENESIN 200MG/10ML SUGAR FREE UDC PO PRN (14:15)
[2021-10-10] MEDS ORDERED: METRONIDAZOLE 500 MG PREMIX 100 ML IV SCH (14:15)
[2021-10-10] MEDS ORDERED: ACETAMINOPHEN 650MG SUPP PR PRN (14:15)
[2021-10-10] MEDS ORDERED: DOCUSATE SODIUM 100MG CAPSULE PO PRN (14:15)
[2021-10-10] MEDS ORDERED: HYDROCODONE/ACETAMINOPHEN 5/325MG TABLET PO PRN (14:15)
[2021-10-10] MEDS ORDERED: ACETAMINOPHEN 325MG TABLET PO PRN (14:15)
[2021-10-10] MEDS ORDERED: NA PHOS,M-B/NA PHOS,DI-BA ENEMA 118ML PR PRN (14:15)
[2021-10-10] MEDS ORDERED: IPRATROPIUM/ALBUTEROL 0.5-3(2.5)MG/3ML NEB NEB PRN (14:15)
[2021-10-10] MEDS ORDERED: CLONIDINE 0.1MG TABLET PO PRN (14:15)
[2021-10-10] MEDS ORDERED: LORAZEPAM 0.5MG TABLET PO PRN (14:15)
[2021-10-10] MEDS ORDERED: HYDRALAZINE 20MG/ML VIAL IV PRN (14:30)
[2021-10-10] MEDS: FAMOTIDINE 20MG/2ML VIAL IV SCH (15:33)
[2021-10-10] MEDS: METHYLPREDNISOLONE SOD SUCC 40 MG/ML VIAL IV SCH ×2 (15:33→21:23)
[2021-10-10] MEDS: METRONIDAZOLE 500 MG PREMIX 100 ML IV SCH (15:34)
[2021-10-10] MEDS: AMLODIPINE 10MG TABLET PO SCH (15:34)
[2021-10-10] MEDS: AZTREONAM 500 MG in DEXTROSE 5% WATER 50 ML IV SCH (15:35)
[2021-10-10 16:26] LABS: BG BASE EXCESS -5.4 mmol/L (-2.0-2.0); BG CARBOXYHEMOGLOBIN 0.3 % (0.5-1.5); BG DEOXYHEMOGLOBIN 3.9 % (0.0-5.0); BG FRACTION INSPIRED OXYGEN 28; BG HCO3 ACT 19.2 mmol/L (22.0-26.0); BG METHEMOGLOBIN 0.3 % (0.0-1.5); BG OXYGEN SATURATION 96.1 % (92.0-98.5); BG OXYHEMOGLOBIN 95.5 % (94.0-97.0); BG PCO2 33.8 mmHg (35.0-45.0); BG PH 7.372 (7.350-7.450); BG PO2 87.4 mmHg (75.0-100.0); BG SAMPLE SITE LEFT BRACHIAL; BG TOTAL HEMOGLOBIN 9.7 g/dL (12.0-18.0); BG VENT MODE NASAL CANNULA
[2021-10-10 18:30] VITALS: BP 151/72
[2021-10-10] MEDS: METOPROLOL TARTRATE 25MG TABLET PO SCH (18:44)
[2021-10-10 19:08] VITALS: BP 151/72
[2021-10-10 20:00] VITALS: BP 137/67
[2021-10-10] MEDS ORDERED: EPOETIN ALFA-EPBX 4,000 UNIT/ML VIAL SUBCUT SCH (21:00)
[2021-10-10] MEDS ORDERED: EPOETIN ALFA 4000UNITS/ML VIAL SUBCUT SCH (21:00)
[2021-10-10] MEDS: NITROGLYCERIN OINT 1GM/INCH UDPKT TD SCH (21:24)
[2021-10-10] MEDS ORDERED: HYDRALAZINE HCL 25MG TABLET PO SCH (22:00)
[2021-10-10] MEDS ORDERED: NALOXONE HCL 0.4 MG/ML 1ML VIAL IV PRN (23:45)
[2021-10-11] VITALS (7 sets, daily range): BP systolic 102–160; BP diastolic 60–86
[2021-10-11] MEDS: DIPHENHYDRAMINE 50MG/ML VIAL IV PRN ×2 (00:16→05:34)
[2021-10-11] MEDS: MORPHINE SULFATE 2 MG/ML CPJ (NOT FOR IM USE) IV PRN ×4 (00:20→21:36)
[2021-10-11] MEDS: AZTREONAM 500 MG in DEXTROSE 5% WATER 50 ML IV SCH (01:54)
[2021-10-11] MEDS: METRONIDAZOLE 500 MG PREMIX 100 ML IV SCH ×2 (05:00→16:55)
[2021-10-11] MEDS: METHYLPREDNISOLONE SOD SUCC 40 MG/ML VIAL IV SCH ×3 (05:15→21:35)
[2021-10-11] MEDS: NITROGLYCERIN OINT 1GM/INCH UDPKT TD SCH ×3 (05:16→21:36)
[2021-10-11] MEDS: IPRATROPIUM/ALBUTEROL 0.5-3(2.5)MG/3ML NEB HHN SCH ×4 (06:00→21:02)
[2021-10-11] MEDS ORDERED: SORBITOL 70% SOLN 30ML PO SCH (09:00)
[2021-10-11 09:36] LABS: BASOPHILS % 0.2 % (0.0-2.0); HEMATOCRIT. 26.8 % (36.0-48.0); HEMOGLOBIN. 9.1 g/dL (12.0-16.0); MEAN CORPUSCULAR HEMOGLOBIN 29.3 pg (28.0-32.0); MEAN CORPUSCULAR VOLUME 85.8 fL (81.0-99.0); MEAN PLATELET VOLUME 7.9 fl (7.4-10.4); MONOCYTES % 2.1 % (2.0-8.0); NEUTROPHILS % 80.7 % (40.0-76.0); PLATELET 131 x1000/uL (130-400); RED BLOOD CELL COUNT 3.12 mill/uL (4.2-5.4); RED CELL DISTRIBUTION WIDTH 17.6 % (11.6-14.6)
[2021-10-11 09:52] LABS: CREATINE KINASE 121 IU/L (26-192)
[2021-10-11 09:53] LABS: CREATINE KINASE MB FRACTION 2.4 ng/mL (0.5-3.6)
[2021-10-11] MEDS: METOPROLOL TARTRATE 25MG TABLET PO SCH ×2 (10:09→16:56)
[2021-10-11] MEDS: ASPIRIN 81MG EC TABLET PO SCH (10:09)
[2021-10-11] MEDS: FOLIC ACID/VITAMIN B COMP W-C TABLET PO SCH (10:09)
[2021-10-11] MEDS: AMLODIPINE 10MG TABLET PO SCH (10:09)
[2021-10-11] MEDS: FAMOTIDINE 20MG/2ML VIAL IV SCH (10:09)
[2021-10-11] MEDS: AZTREONAM 1G in DEXTROSE 5% WATER 50ML IV SCH ×2 (11:13→11:15)
[2021-10-11] MEDS ORDERED: AZTREONAM 1G in DEXTROSE 5% WATER 50ML IV SCH (12:00)
[2021-10-11 13:24] LABS: HEPATITIS B SURFACE ANTIGEN REACTIVE PEND CONFIR
[2021-10-11 16:21] LABS: BASOPHILS % 0.2 % (0.0-2.0); HEMATOCRIT. 24.5 % (36.0-48.0); HEMOGLOBIN. 8.2 g/dL (12.0-16.0); LYMPHOCYTES % 15.3 % (20.0-50.0); MEAN CORPUSCULAR HEMOGLOBIN 29.2 pg (28.0-32.0); MEAN CORPUSCULAR VOLUME 87.3 fL (81.0-99.0); MEAN PLATELET VOLUME 7.8 fl (7.4-10.4); MONOCYTES % 2.3 % (2.0-8.0); NEUTROPHILS % 82.2 % (40.0-76.0); PLATELET 123 x1000/uL (130-400); RED BLOOD CELL COUNT 2.81 mill/uL (4.2-5.4); RED CELL DISTRIBUTION WIDTH 17.1 % (11.6-14.6)
[2021-10-11 16:38] LABS: CHLORIDE 111 mEq/L (98-107)
[2021-10-11 16:47] LABS: PHOSPHORUS 4.4 mg/dL (2.5-4.9)
[2021-10-11] MEDS ORDERED: CALC667C PO (17:07)
[2021-10-11] MEDS ORDERED: P20 PO (17:07)
[2021-10-11] MEDS ORDERED: ATOR40TA70 MT (17:07)
[2021-10-11] MEDS ORDERED: AMLO10TA80 PO (17:07)
[2021-10-11] MEDS ORDERED: METO25TA6 PO (17:07)
[2021-10-11] MEDS ORDERED: ALBU6.7H15 INH (17:07)
[2021-10-11] MEDS ORDERED: ASPI-1497 MT (17:08)
[2021-10-12] VITALS: BP 151/87
[2021-10-12] MEDS: IPRATROPIUM/ALBUTEROL 0.5-3(2.5)MG/3ML NEB HHN SCH (02:40)
[2021-10-12 04:00] VITALS: BP 145/65
[2021-10-12] MEDS: METRONIDAZOLE 500 MG PREMIX 100 ML IV SCH (06:29)
[2021-10-12] MEDS: NITROGLYCERIN OINT 1GM/INCH UDPKT TD SCH ×2 (06:30→14:00)
[2021-10-12] MEDS: METHYLPREDNISOLONE SOD SUCC 40 MG/ML VIAL IV SCH ×2 (06:30→14:10)
[2021-10-12] MEDS: MORPHINE SULFATE 2 MG/ML CPJ (NOT FOR IM USE) IV PRN (06:31)
[2021-10-12 08:00] VITALS: BP 165/84
[2021-10-12] MEDS: AMLODIPINE 10MG TABLET PO SCH (08:28)
[2021-10-12] MEDS: ASPIRIN 81MG EC TABLET PO SCH (08:31)
[2021-10-12] MEDS: FOLIC ACID/VITAMIN B COMP W-C TABLET PO SCH (08:31)
[2021-10-12] MEDS: METOPROLOL TARTRATE 25MG TABLET PO SCH (08:32)
[2021-10-12] MEDS ORDERED: FAMOTIDINE 20MG TABLET PO SCH (09:00)
[2021-10-12 12:00] VITALS: BP 136/69
[2021-10-12 14:30] VITALS: BP 159/81
[2021-10-12 14:54] VITALS: BP 159/81
[2021-10-12] MEDS ORDERED: METRONIDAZOLE 500MG TABLET PO SCH (18:00)
[2021-10-13 09:07] LABS: HBSAG SCREEN Confirm. indicated (Negative)
[2021-10-13 13:07] LABS: HBSAG CONFIRMATION Positive (.)
== END 2021-10-12 15:40 | disposition home or self-care (01) | DRG 193 ==
LOC: ER 10:37 → 8WST 12:55 → ENRESERV 15:50
PROVIDERS: ADMIT Internal Medicine; ATTEND Internal Medicine
DX: J18.9 Pneumonia, unspecified organism (principal); N18.6 End stage renal disease; I50.33 Acute on chronic diastolic (congestive) heart failure; I13.2 Hypertensive heart and chronic kidney disease with heart failure and with stage 5 chronic kidney disease, or end stage renal disease; G93.40 Encephalopathy, unspecified; J44.1 Chronic obstructive pulmonary disease with (acute) exacerbation; N25.81 Secondary hyperparathyroidism of renal origin; J44.0 Chronic obstructive pulmonary disease with (acute) lower respiratory infection; I27.20 Pulmonary hypertension, unspecified; I16.0 Hypertensive urgency; D64.9 Anemia, unspecified; E87.5 Hyperkalemia; G89.29 Other chronic pain; G62.9 Polyneuropathy, unspecified; K21.9 Gastro-esophageal reflux disease without esophagitis; R10.819 Abdominal tenderness, unspecified site; Z20.822 Contact with and (suspected) exposure to COVID-19; Z79.899 Other long term (current) drug therapy; Z88.0 Allergy status to penicillin; Z88.1 Allergy status to other antibiotic agents; Z88.5 Allergy status to narcotic agent; Z88.8 Allergy status to other drugs, medicaments and biological substances; Z88.4 Allergy status to anesthetic agent; Z99.2 Dependence on renal dialysis; Z98.1 Arthrodesis status; Z90.710 Acquired absence of both cervix and uterus; Z59.00 Homelessness unspecified; Z90.49 Acquired absence of other specified parts of digestive tract; Z91.19 Patient's noncompliance with other medical treatment and regimen; Z82.49 Family history of ischemic heart disease and other diseases of the circulatory system
CPT/HCPCS: 36415; 36600; 71045; 72100; 80053; 82140; 82375; 82550; 82553; 82805; 83880; 84100; 84443; 84484; 85025; 86705; 86709; 86803; 87340; 87426; 93005; 93306; 93970; 94640; 97162; 99285; C1893; J0885; J1200; J1956; J2270; J2920; J2930; J3490; J7060

== ENCOUNTER 2021-10-30 23:36 | Emergency (ER) | payer OTHER, MEDICAID ==
[~2021-10-30] VITALS: Ht 162.6 cm; Wt 73.0 kg
[~2021-10-30 23:36] MED LIST changes: -ALBU18HF2 IH; +ASPI-1497 MT; -BRIM5DRO EACHEYE; -OXYC-662 MT; +P20 PO
[2021-10-31] MEDS ORDERED: ONDANSETRON HCL 4MG/2ML INJ IV STA (02:56)
[2021-10-31] MEDS ORDERED: MORPHINE SULFATE 4 MG/ML CPJ (NOT FOR IM USE) IV STA (02:56)
[2021-10-31] MEDS ORDERED: HYDRALAZINE 20MG/ML VIAL IV ONE (03:00)
[2021-10-31] MEDS ORDERED: DIPHENHYDRAMINE 50MG/ML VIAL IV ONE (03:00)
[2021-10-31 04:20] LABS: BASOPHILS % 0.9 % (0.0-2.0); EOSINOPHILS % 4.5 % (0.0-5.0); HEMATOCRIT. 25.5 % (36.0-48.0); HEMOGLOBIN. 8.3 g/dL (12.0-16.0); LYMPHOCYTES % 27.7 % (20.0-50.0); MEAN CORPUSCULAR HEMOGLOBIN 29.3 pg (28.0-32.0); MEAN CORPUSCULAR VOLUME 89.4 fL (81.0-99.0); MEAN PLATELET VOLUME 8.9 fl (7.4-10.4); MONOCYTES % 7.2 % (2.0-8.0); NEUTROPHILS % 59.7 % (40.0-76.0); PLATELET 170 x1000/uL (130-400); RED BLOOD CELL COUNT 2.85 mill/uL (4.2-5.4); RED CELL DISTRIBUTION WIDTH 19.8 % (11.6-14.6)
[2021-10-31 04:47] LABS: CHLORIDE 111 mEq/L (98-107)
[2021-10-31] MEDS ORDERED: MORPHINE SULFATE 4 MG/ML CPJ (NOT FOR IM USE) IV ONE (06:15)
[2021-10-31 08:13] LABS: CLARITY URINE CLEAR (CLEAR); COLOR URINE YELLOW (YELLOW); KETONES URINE NEGATIVE (NEGATIVE); LEUKOCYTE ESTERASE URINE NEGATIVE (NEGATIVE); NITRITE URINE NEGATIVE (NEGATIVE); OCCULT BLOOD URINE NEGATIVE (NEGATIVE); PROTEIN URINE 3+ (NEGATIVE); UROBILINOGEN URINE 0.2 E.U./dL (0.2-1.0)
[2021-10-31] MEDS ORDERED: CLONIDINE 0.1MG TABLET PO ONE (12:15)
[2021-10-31 12:30] VITALS: BP 172/69
== END 2021-10-31 13:29 | disposition short-term general hospital (02) ==
LOC: ER 23:36
DX: R10.2 Pelvic and perineal pain (principal); I12.0 Hypertensive chronic kidney disease with stage 5 chronic kidney disease or end stage renal disease; N18.6 End stage renal disease; J45.909 Unspecified asthma, uncomplicated; J44.9 Chronic obstructive pulmonary disease, unspecified; Z99.2 Dependence on renal dialysis; Z90.710 Acquired absence of both cervix and uterus; Z98.1 Arthrodesis status; Z88.5 Allergy status to narcotic agent; Z90.49 Acquired absence of other specified parts of digestive tract; Z88.6 Allergy status to analgesic agent; Z88.0 Allergy status to penicillin; Z20.822 Contact with and (suspected) exposure to COVID-19
CPT/HCPCS: 36415; 74176; 76830; 76856; 80053; 81003; 83605; 83690; 85025; 87426; 93005; 96374; 96375; 96376; 99285; J0360; J1200; J2270; J2405

== ENCOUNTER 2022-02-19 13:38 | Inpatient (IN) | payer OTHER, MEDICAID ==
[~2022-02-19] VITALS: Ht 172.7 cm; Wt 68.5 kg
[2022-02-19 14:54] LABS: BASOPHILS % 1.2 % (0.0-2.0); HEMATOCRIT. 33.4 % (36.0-48.0); HEMOGLOBIN. 10.4 g/dL (12.0-16.0); LYMPHOCYTES % 21.1 % (20.0-50.0); MEAN CORPUSCULAR HEMOGLOBIN 28.3 pg (28.0-32.0); MEAN CORPUSCULAR VOLUME 91.1 fL (81.0-99.0); MEAN PLATELET VOLUME 9.2 fl (7.4-10.4); NEUTROPHILS % 74.7 % (40.0-76.0); PLATELET 105 x1000/uL (130-400); RED BLOOD CELL COUNT 3.66 mill/uL (4.2-5.4); RED CELL DISTRIBUTION WIDTH 19.9 % (11.6-14.6)
[2022-02-19] MEDS ORDERED: HYDRALAZINE 20MG/ML VIAL IV ONE (15:00)
[2022-02-19] MEDS ORDERED: PROPOFOL 10MG/ML 100ML 100 ML IV ONE (15:30)
[2022-02-19 15:33] LABS: PROTHROMBIN TIME 11.2 sec (9.6-11.0)
[2022-02-19] MEDS: NICARDIPINE 40MG/200ML PREMIX 200 ML IV PRN (15:48)
[2022-02-19 16:22] LABS: BG BASE EXCESS -10.6 mmol/L (-2.0-2.0); BG CARBOXYHEMOGLOBIN 0.3 % (0.5-1.5); BG DEOXYHEMOGLOBIN 0.5 % (0.0-5.0); BG FRACTION INSPIRED OXYGEN 100; BG HCO3 ACT 16.1 mmol/L (22.0-26.0); BG METHEMOGLOBIN 0.3 % (0.0-1.5); BG OXYGEN SATURATION 99.5 % (92.0-98.5); BG OXYHEMOGLOBIN 98.9 % (94.0-97.0); BG PCO2 38.5 mmHg (35.0-45.0); BG PH 7.239 (7.350-7.450); BG PO2 550.3 mmHg (75.0-100.0); BG SAMPLE SITE LEFT RADIAL; BG TOTAL HEMOGLOBIN 10.8 g/dL (12.0-18.0); BG VENT MODE VENT - AC
[2022-02-19 16:39] LABS: CHLORIDE 109 mEq/L (98-107)
[2022-02-19 16:48] LABS: ETHANOL BLOOD < 10 mg/dL
[2022-02-19] MEDS ORDERED: DEXTROSE 50% WATER 50ML SYRINGE IV ONE (17:00)
[2022-02-19] MEDS ORDERED: CALCIUM CHLORIDE 1GM/10ML SYR IV ONE (17:00)
[2022-02-19] MEDS ORDERED: SODIUM BICARBONATE 8.4% 1 MEQ/ML 50ML SYR IV ONE (17:00)
[2022-02-19] MEDS ORDERED: ALBUTEROL (0.083%) 2.5MG/3ML NEB HHN ONE (17:00)
[2022-02-19] MEDS ORDERED: INSULIN REGULAR (HUMULIN R) 300UNITS/3ML VIAL IV ONE (17:00)
[2022-02-19 17:03] LABS: CLARITY URINE CLEAR (CLEAR); COLOR URINE YELLOW (YELLOW); KETONES URINE NEGATIVE (NEGATIVE); LEUKOCYTE ESTERASE URINE NEGATIVE (NEGATIVE); NITRITE URINE NEGATIVE (NEGATIVE); OCCULT BLOOD URINE 1+ (NEGATIVE); PH URINE 7.5 (4.5-8.0); PROTEIN URINE 4+ (NEGATIVE); SPECIFIC GRAVITY URINE 1.012 (1.005-1.030); UROBILINOGEN URINE 0.2 E.U./dL (0.2-1.0)
[2022-02-19] MEDS ORDERED: NITROGLYCERIN 50MG PREMIX 250 ML IV ONE (17:15)
[2022-02-19 17:17] LABS: *AMPHETAMINES SCREEN URINE NEGATIVE (NEGATIVE); *BARBITURATES SCREEN URINE NEGATIVE (NEGATIVE); *BENZODIAZEPINES SCREEN URINE NEGATIVE (NEGATIVE); *COCAINE SCREEN URINE NEGATIVE (NEGATIVE); CANNABINOID URINE SCREEN NEGATIVE (NEGATIVE); METHADONE URINE SCREEN NEGATIVE (NEGATIVE); OPIATES URINE SCREEN PRESUMTIVE POSITIVE (NEGATIVE); PHENCYCLIDINE URINE SCREEN NEGATIVE (NEGATIVE)
[2022-02-19] MEDS ORDERED: NITROGLYCERIN 50MG PREMIX 250 ML IV SCH (17:45)
[2022-02-19] MEDS ORDERED: ONDANSETRON HCL 4MG/2ML INJ IV PRN (19:45)
[2022-02-19] MEDS ORDERED: ACETAMINOPHEN 325MG TABLET PO PRN (19:45)
[2022-02-19] MEDS: METHYLPREDNISOLONE SOD SUCC 40 MG/ML VIAL IV SCH (20:00)
[2022-02-19] MEDS ORDERED: VANCOMYCIN 1,750 MG in DEXT 5% WATER 500 ML IV ONE (20:00)
[2022-02-19] MEDS: AZTREONAM 1 G in DEXTROSE 5% WATER 50 ML IV SCH (20:00)
[2022-02-19] MEDS ORDERED: SODIUM CHLORIDE 0.9% 1,000 ML IV SCH (20:00)
[2022-02-19] MEDS: PANTOPRAZOLE SODIUM 40 MG/VIAL IV SCH (21:03)
[2022-02-19 21:04] LABS: BG BASE EXCESS -8.7 mmol/L (-2.0-2.0); BG CARBOXYHEMOGLOBIN 0.3 % (0.5-1.5); BG DEOXYHEMOGLOBIN 1.3 % (0.0-5.0); BG FRACTION INSPIRED OXYGEN 50; BG HCO3 ACT 18.3 mmol/L (22.0-26.0); BG METHEMOGLOBIN 0.3 % (0.0-1.5); BG OXYGEN SATURATION 98.7 % (92.0-98.5); BG OXYHEMOGLOBIN 98.1 % (94.0-97.0); BG PCO2 44.4 mmHg (35.0-45.0); BG PH 7.234 (7.350-7.450); BG PO2 175.3 mmHg (75.0-100.0); BG SAMPLE SITE LEFT RADIAL; BG TOTAL HEMOGLOBIN 9.8 g/dL (12.0-18.0); BG VENT MODE VENT - AC
[2022-02-19 23:03] LABS: BASOPHILS % 0.5 % (0.0-2.0); HEMATOCRIT. 27.2 % (36.0-48.0); HEMOGLOBIN. 8.6 g/dL (12.0-16.0); LYMPHOCYTES % 9.1 % (20.0-50.0); MEAN CORPUSCULAR HEMOGLOBIN 28.5 pg (28.0-32.0); MEAN CORPUSCULAR VOLUME 89.8 fL (81.0-99.0); MONOCYTES % 4.9 % (2.0-8.0); NEUTROPHILS % 85.5 % (40.0-76.0); PLATELET 77 x1000/uL (130-400); RED BLOOD CELL COUNT 3.03 mill/uL (4.2-5.4); RED CELL DISTRIBUTION WIDTH 18.6 % (11.6-14.6)
[2022-02-19 23:09] LABS: CHLORIDE 110 mEq/L (98-107)
[2022-02-20] VITALS (35 sets, daily range): BP systolic 133–161; BP diastolic 58–88
[2022-02-20] MEDS ORDERED: PROPOFOL 10MG/ML 100ML 100 ML IV ONE (00:15)
[2022-02-20] MEDS ORDERED: PROPOFOL 10MG/ML 100ML 100 ML IV NR (00:15)
[2022-02-20 03:37] LABS: HEMATOCRIT. 27.2 % (36.0-48.0); HEMOGLOBIN. 8.8 g/dL (12.0-16.0); MEAN CORPUSCULAR HEMOGLOBIN 28.4 pg (28.0-32.0); MEAN CORPUSCULAR VOLUME 88.3 fL (81.0-99.0); MEAN PLATELET VOLUME 9.1 fl (7.4-10.4); PLATELET 73 x1000/uL (130-400); RED BLOOD CELL COUNT 3.09 mill/uL (4.2-5.4); RED CELL DISTRIBUTION WIDTH 18.6 % (11.6-14.6)
[2022-02-20 03:56] LABS: CHLORIDE 106 mEq/L (98-107)
[2022-02-20 05:06] LABS: HEMATOCRIT 26.5 % (36.0-48.0); HEMOGLOBIN 8.5 g/dL (12.0-16.0); MEAN CORPUSCULAR HEMOGLOBIN 28.5 pg (28.0-32.0); MEAN CORPUSCULAR VOLUME 88.4 fL (81.0-99.0); PLATELET 70 x1000/uL (130-400); RED CELL DISTRIBUTION WIDTH 18.5 % (11.6-14.6)
[2022-02-20] MEDS: NICARDIPINE 40MG/200ML PREMIX 200 ML IV PRN (05:32)
[2022-02-20 06:55] LABS: HEPATITIS B SURFACE ANTIGEN REACTIVE PEND CONFIR
[2022-02-20 07:22] LABS: PLATELET ESTIMATE DECREASED
[2022-02-20] MEDS: AZTREONAM 1 G in DEXTROSE 5% WATER 50 ML IV SCH ×2 (08:00→21:56)
[2022-02-20] MEDS: METHYLPREDNISOLONE SOD SUCC 40 MG/ML VIAL IV SCH ×2 (08:00→21:10)
[2022-02-20] MEDS: IPRATROPIUM/ALBUTEROL 0.5-3(2.5)MG/3ML NEB HHN SCH ×4 (08:00→20:35)
[2022-02-20] MEDS: AMLODIPINE 5MG TABLET PO SCH (09:00)
[2022-02-20 09:08] LABS: BG BASE EXCESS -3.6 mmol/L (-2.0-2.0); BG CARBOXYHEMOGLOBIN 0.6 % (0.5-1.5); BG DEOXYHEMOGLOBIN 0.7 % (0.0-5.0); BG FRACTION INSPIRED OXYGEN 50; BG HCO3 ACT 20.3 mmol/L (22.0-26.0); BG METHEMOGLOBIN 0.3 % (0.0-1.5); BG OXYGEN SATURATION 99.3 % (92.0-98.5); BG OXYHEMOGLOBIN 98.4 % (94.0-97.0); BG PCO2 31.9 mmHg (35.0-45.0); BG PH 7.421 (7.350-7.450); BG PO2 204.7 mmHg (75.0-100.0); BG SAMPLE SITE RIGHT RADIAL; BG TOTAL HEMOGLOBIN 8.8 g/dL (12.0-18.0); BG VENT MODE VENT - AC
[2022-02-20] MEDS ORDERED: NICARDIPINE 40MG/200ML PREMIX 200 ML IV PRN (14:30)
[2022-02-20] MEDS: PROPOFOL 10MG/ML 100ML 100 ML IV PRN (15:59)
[2022-02-20] MEDS ORDERED: DEXTROSE 50% WATER 50ML SYRINGE IV PRN (21:00)
[2022-02-20] MEDS: CLONIDINE 0.1MG TABLET PO PRN (21:10)
[2022-02-20] MEDS: EPOETIN ALFA-EPBX 4,000 UNIT/ML VIAL SUBCUT SCH (21:10)
[2022-02-20] MEDS: PANTOPRAZOLE SODIUM 40 MG/VIAL IV SCH (21:10)
[2022-02-20] MEDS: BLOOD SUGAR DIAGNOSTIC STRIP TEST SCH (23:47)
[2022-02-20] MEDS: INSULIN LISPRO 100 UNITS/ML SUBCUT SCH (23:47)
[2022-02-21] VITALS (69 sets, daily range): BP systolic 136–181; BP diastolic 56–128
[2022-02-21] MEDS: IPRATROPIUM/ALBUTEROL 0.5-3(2.5)MG/3ML NEB HHN SCH ×6 (00:32→21:07)
[2022-02-21] MEDS: PROPOFOL 10MG/ML 100ML 100 ML IV PRN (05:26)
[2022-02-21] MEDS: BLOOD SUGAR DIAGNOSTIC STRIP TEST SCH ×4 (05:26→23:11)
[2022-02-21] MEDS: INSULIN LISPRO 100 UNITS/ML SUBCUT SCH ×4 (05:27→23:11)
[2022-02-21 05:45] LABS: BASOPHILS % 0.2 % (0.0-2.0); HEMATOCRIT. 25.5 % (36.0-48.0); HEMOGLOBIN. 8.2 g/dL (12.0-16.0); LYMPHOCYTES % 8.3 % (20.0-50.0); MEAN CORPUSCULAR HEMOGLOBIN 28.4 pg (28.0-32.0); MEAN PLATELET VOLUME 9.9 fl (7.4-10.4); MONOCYTES % 1.6 % (2.0-8.0); NEUTROPHILS % 89.9 % (40.0-76.0); PLATELET 82 x1000/uL (130-400); RED BLOOD CELL COUNT 2.89 mill/uL (4.2-5.4); RED CELL DISTRIBUTION WIDTH 18.6 % (11.6-14.6)
[2022-02-21 06:10] LABS: CHLORIDE 104 mEq/L (98-107)
[2022-02-21 06:29] LABS: PHOSPHORUS 5.1 mg/dL (2.5-4.9)
[2022-02-21] MEDS: METHYLPREDNISOLONE SOD SUCC 40 MG/ML VIAL IV SCH ×2 (08:58→21:22)
[2022-02-21] MEDS: CARVEDILOL 6.25 MG TABLET PO SCH ×2 (08:58→21:22)
[2022-02-21] MEDS: AZTREONAM 1 G in DEXTROSE 5% WATER 50 ML IV SCH ×2 (08:59→21:23)
[2022-02-21] MEDS: AMLODIPINE 5MG TABLET PO SCH (08:59)
[2022-02-21] MEDS: CLONIDINE 0.1MG TABLET PO PRN (12:15)
[2022-02-21 13:03] LABS: BG BASE EXCESS 1.4 mmol/L (-2.0-2.0); BG CARBOXYHEMOGLOBIN 0.1 % (0.5-1.5); BG DEOXYHEMOGLOBIN 1.4 % (0.0-5.0); BG FRACTION INSPIRED OXYGEN 30; BG HCO3 ACT 25.5 mmol/L (22.0-26.0); BG METHEMOGLOBIN 0.2 % (0.0-1.5); BG OXYGEN SATURATION 98.6 % (92.0-98.5); BG OXYHEMOGLOBIN 98.3 % (94.0-97.0); BG PH 7.444 (7.350-7.450); BG PO2 131.2 mmHg (75.0-100.0); BG SAMPLE SITE RIGHT RADIAL; BG TOTAL HEMOGLOBIN 9.2 g/dL (12.0-18.0); BG VENT MODE VENT - CPAP
[2022-02-21] MEDS ORDERED: VANCOMYCIN 500MG PREMIX 100 ML IV SCH (21:00)
[2022-02-21] MEDS: PANTOPRAZOLE SODIUM 40 MG/VIAL IV SCH (21:22)
[2022-02-21] MEDS: HYDROMORPHONE HCL/PF 2MG/ML CPJ IV PRN (21:41)
[2022-02-22] VITALS (43 sets, daily range): BP systolic 46–182; BP diastolic 25–103
[2022-02-22] MEDS: IPRATROPIUM/ALBUTEROL 0.5-3(2.5)MG/3ML NEB HHN SCH ×6 (01:22→21:16)
[2022-02-22] MEDS: HYDROMORPHONE HCL/PF 2MG/ML CPJ IV PRN ×3 (04:48→22:17)
[2022-02-22] MEDS: INSULIN LISPRO 100 UNITS/ML SUBCUT SCH ×3 (06:00→17:46)
[2022-02-22] MEDS: BLOOD SUGAR DIAGNOSTIC STRIP TEST SCH ×3 (06:00→17:46)
[2022-02-22 06:25] LABS: BASOPHILS % 0.3 % (0.0-2.0); HEMATOCRIT. 25.9 % (36.0-48.0); HEMOGLOBIN. 8.5 g/dL (12.0-16.0); LYMPHOCYTES % 9.3 % (20.0-50.0); MEAN CORPUSCULAR HEMOGLOBIN 29.2 pg (28.0-32.0); MEAN CORPUSCULAR VOLUME 89.2 fL (81.0-99.0); MEAN PLATELET VOLUME 10.1 fl (7.4-10.4); MONOCYTES % 2.1 % (2.0-8.0); NEUTROPHILS % 88.3 % (40.0-76.0); PLATELET 89 x1000/uL (130-400); RED CELL DISTRIBUTION WIDTH 18.4 % (11.6-14.6)
[2022-02-22 06:37] LABS: CHLORIDE 103 mEq/L (98-107)
[2022-02-22 06:56] LABS: PHOSPHORUS 4.2 mg/dL (2.5-4.9)
[2022-02-22] MEDS: AMLODIPINE 5MG TABLET PO SCH (08:06)
[2022-02-22] MEDS: METHYLPREDNISOLONE SOD SUCC 40 MG/ML VIAL IV SCH ×2 (08:06→22:00)
[2022-02-22] MEDS: AZTREONAM 1 G in DEXTROSE 5% WATER 50 ML IV SCH ×2 (08:06→22:00)
[2022-02-22] MEDS: CLONIDINE 0.1MG TABLET PO PRN (08:07)
[2022-02-22] MEDS: CARVEDILOL 12.5MG TABLET PO SCH ×2 (08:09→22:00)
[2022-02-22] MEDS ORDERED: NALOXONE HCL 0.4MG/ML VIAL IV PRN (10:45)
[2022-02-22 13:11] LABS: HBSAG CONFIRMATION Positive (.); HBSAG SCREEN Confirm. indicated (Negative)
[2022-02-22] MEDS: EPOETIN ALFA-EPBX 4,000 UNIT/ML VIAL SUBCUT SCH (21:00)
[2022-02-22] MEDS: PANTOPRAZOLE SODIUM 40 MG/VIAL IV SCH (22:01)
[2022-02-23] VITALS: BP 141/64
[2022-02-23] MEDS: BLOOD SUGAR DIAGNOSTIC STRIP TEST SCH ×4 (00:47→17:47)
[2022-02-23] MEDS: INSULIN LISPRO 100 UNITS/ML SUBCUT SCH ×4 (00:53→17:47)
[2022-02-23] MEDS: IPRATROPIUM/ALBUTEROL 0.5-3(2.5)MG/3ML NEB HHN SCH ×6 (03:54→20:55)
[2022-02-23 04:00] VITALS: BP 143/70
[2022-02-23] MEDS: HYDROMORPHONE HCL/PF 2MG/ML CPJ IV PRN ×3 (04:38→21:54)
[2022-02-23 08:00] VITALS: BP 124/67
[2022-02-23] MEDS: METHYLPREDNISOLONE SOD SUCC 40 MG/ML VIAL IV SCH ×2 (08:00→21:37)
[2022-02-23] MEDS: CARVEDILOL 12.5MG TABLET PO SCH ×2 (08:48→21:38)
[2022-02-23] MEDS: AMLODIPINE 5MG TABLET PO SCH (08:48)
[2022-02-23] MEDS: AZTREONAM 1 G in DEXTROSE 5% WATER 50 ML IV SCH ×2 (09:00→21:37)
[2022-02-23 12:00] VITALS: BP 146/70
[2022-02-23 16:00] VITALS: BP 187/86
[2022-02-23 20:00] VITALS: BP 123/52
[2022-02-23 20:03] LABS: HEMOGLOBIN. 8.3 g/dL (12.0-16.0); MEAN CORPUSCULAR HEMOGLOBIN 28.5 pg (28.0-32.0); MEAN PLATELET VOLUME 9.1 fl (7.4-10.4); PLATELET 108 x1000/uL (130-400); RED BLOOD CELL COUNT 2.92 mill/uL (4.2-5.4); RED CELL DISTRIBUTION WIDTH 18.3 % (11.6-14.6)
[2022-02-23 20:47] LABS: PLATELET ESTIMATE DECREASED
[2022-02-23] MEDS: PANTOPRAZOLE SODIUM 40 MG/VIAL IV SCH (21:37)
[2022-02-24] VITALS: BP 150/62
[2022-02-24] MEDS: IPRATROPIUM/ALBUTEROL 0.5-3(2.5)MG/3ML NEB HHN SCH ×4 (00:32→19:45)
[2022-02-24 04:00] VITALS: BP 146/66
[2022-02-24] MEDS: INSULIN LISPRO 100 UNITS/ML SUBCUT SCH ×5 (06:00→23:17)
[2022-02-24] MEDS: BLOOD SUGAR DIAGNOSTIC STRIP TEST SCH ×5 (06:44→23:17)
[2022-02-24] MEDS: HYDROMORPHONE HCL/PF 2MG/ML CPJ IV PRN ×3 (06:58→21:19)
[2022-02-24 08:00] VITALS: BP 174/72
[2022-02-24] MEDS: METHYLPREDNISOLONE SOD SUCC 40 MG/ML VIAL IV SCH (08:00)
[2022-02-24] MEDS: ENOXAPARIN 30MG/0.3ML SYR SUBCUT SCH (09:00)
[2022-02-24] MEDS: AZTREONAM 1 G in DEXTROSE 5% WATER 50 ML IV SCH ×2 (09:00→20:51)
[2022-02-24] MEDS: CARVEDILOL 12.5MG TABLET PO SCH ×2 (09:29→20:52)
[2022-02-24] MEDS: AMLODIPINE 5MG TABLET PO SCH (09:29)
[2022-02-24 12:00] VITALS: BP 139/67
[2022-02-24] MEDS ORDERED: VANCOMYCIN 500MG PREMIX 100 ML IV NR (12:00)
[2022-02-24 13:04] LABS: HEMATOCRIT. 26.9 % (36.0-48.0); HEMOGLOBIN. 8.7 g/dL (12.0-16.0); MEAN CORPUSCULAR HEMOGLOBIN 28.8 pg (28.0-32.0); MEAN CORPUSCULAR VOLUME 89.1 fL (81.0-99.0); MEAN PLATELET VOLUME 9.3 fl (7.4-10.4); PLATELET 115 x1000/uL (130-400); RED BLOOD CELL COUNT 3.02 mill/uL (4.2-5.4); RED CELL DISTRIBUTION WIDTH 18.2 % (11.6-14.6)
[2022-02-24] MEDS: CALCITRIOL 0.25MCG CAPSULE PO SCH (14:19)
[2022-02-24 16:00] VITALS: BP 121/53
[2022-02-24] MEDS: NIFEDIPINE XL 60MG TAB PO SCH (18:09)
[2022-02-24] MEDS: CALCIUM CARBONATE 500MG TABLET CHEW PO SCH (18:10)
[2022-02-24 20:00] VITALS: BP 147/64
[2022-02-24] MEDS: PANTOPRAZOLE SODIUM 40 MG/VIAL IV SCH (20:52)
[2022-02-24] MEDS: EPOETIN ALFA-EPBX 4,000 UNIT/ML VIAL SUBCUT SCH (20:53)
[2022-02-24 22:45] LABS: PLATELET ESTIMATE DECREASED
[2022-02-25] VITALS: BP 107/62
[2022-02-25] MEDS: IPRATROPIUM/ALBUTEROL 0.5-3(2.5)MG/3ML NEB HHN SCH ×6 (01:18→19:53)
[2022-02-25 04:00] VITALS: BP_SYST 128; BP_SYST 140; BP_DIAS 62; BP_DIAS 68
[2022-02-25] MEDS: INSULIN LISPRO 100 UNITS/ML SUBCUT SCH ×4 (06:00→23:11)
[2022-02-25] MEDS: NIFEDIPINE XL 60MG TAB PO SCH ×2 (06:00→17:28)
[2022-02-25] MEDS: BLOOD SUGAR DIAGNOSTIC STRIP TEST SCH ×4 (06:17→23:11)
[2022-02-25 08:00] VITALS: BP 154/84
[2022-02-25] MEDS: ENOXAPARIN 30MG/0.3ML SYR SUBCUT SCH (08:30)
[2022-02-25] MEDS: CALCIUM CARBONATE 500MG TABLET CHEW PO SCH ×2 (09:47→17:27)
[2022-02-25] MEDS: METHYLPREDNISOLONE SOD SUCC 40 MG/ML VIAL IV SCH (09:47)
[2022-02-25] MEDS: CARVEDILOL 12.5MG TABLET PO SCH ×2 (09:48→21:17)
[2022-02-25] MEDS: CALCITRIOL 0.25MCG CAPSULE PO SCH (09:48)
[2022-02-25] MEDS: HYDROMORPHONE HCL/PF 2MG/ML CPJ IV PRN (10:56)
[2022-02-25 12:00] VITALS: BP 137/60
[2022-02-25] MEDS ORDERED: GUAIFENESIN-DM 200MG-20MG/10ML UDC PO PRN (15:30)
[2022-02-25] MEDS: CLONIDINE 0.1MG TABLET PO PRN (15:31)
[2022-02-25 16:00] VITALS: BP 165/60
[2022-02-25 20:00] VITALS: BP 144/66
[2022-02-25] MEDS: PANTOPRAZOLE SODIUM 40 MG/VIAL IV SCH (21:17)
[2022-02-26] VITALS: BP 130/64
[2022-02-26] MEDS: IPRATROPIUM/ALBUTEROL 0.5-3(2.5)MG/3ML NEB HHN SCH ×6 (00:06→20:00)
[2022-02-26] MEDS: HYDROMORPHONE HCL/PF 2MG/ML CPJ IV PRN ×3 (00:42→15:52)
[2022-02-26 04:00] VITALS: BP 139/59
[2022-02-26] MEDS: BLOOD SUGAR DIAGNOSTIC STRIP TEST SCH ×3 (05:19→18:07)
[2022-02-26] MEDS: INSULIN LISPRO 100 UNITS/ML SUBCUT SCH ×3 (05:20→18:08)
[2022-02-26] MEDS: NIFEDIPINE XL 60MG TAB PO SCH ×2 (06:30→18:07)
[2022-02-26 07:21] LABS: PHOSPHORUS 4.5 mg/dL (2.5-4.9)
[2022-02-26 08:00] VITALS: BP 182/69
[2022-02-26] MEDS: CALCIUM CARBONATE 500MG TABLET CHEW PO SCH ×2 (08:58→18:07)
[2022-02-26] MEDS: METHYLPREDNISOLONE SOD SUCC 40 MG/ML VIAL IV SCH (08:59)
[2022-02-26] MEDS: CALCITRIOL 0.25MCG CAPSULE PO SCH (08:59)
[2022-02-26] MEDS: ENOXAPARIN 30MG/0.3ML SYR SUBCUT SCH (09:00)
[2022-02-26] MEDS: CARVEDILOL 12.5MG TABLET PO SCH ×2 (09:04→21:23)
[2022-02-26 12:00] VITALS: BP 147/59
[2022-02-26] MEDS: CLONIDINE 0.1MG TABLET PO SCH ×2 (14:36→21:24)
[2022-02-26 16:00] VITALS: BP_DIAS 139
[2022-02-26 20:00] VITALS: BP 145/60
[2022-02-26] MEDS: PANTOPRAZOLE SODIUM 40 MG/VIAL IV SCH (21:00)
[2022-02-27] VITALS: BP 129/53
[2022-02-27] MEDS: IPRATROPIUM/ALBUTEROL 0.5-3(2.5)MG/3ML NEB HHN SCH ×6 (01:00→22:27)
[2022-02-27 04:00] VITALS: BP 146/63
[2022-02-27] MEDS: BLOOD SUGAR DIAGNOSTIC STRIP TEST SCH ×2 (05:18)
[2022-02-27] MEDS: INSULIN LISPRO 100 UNITS/ML SUBCUT SCH ×2 (05:18)
[2022-02-27] MEDS: CLONIDINE 0.1MG TABLET PO SCH ×3 (05:23→20:22)
[2022-02-27] MEDS: NIFEDIPINE XL 60MG TAB PO SCH ×2 (05:23→18:51)
[2022-02-27 08:00] VITALS: BP 119/57
[2022-02-27] MEDS: METHYLPREDNISOLONE SOD SUCC 40 MG/ML VIAL IV SCH (09:00)
[2022-02-27] MEDS: ENOXAPARIN 30MG/0.3ML SYR SUBCUT SCH (09:00)
[2022-02-27] MEDS: PREGABALIN 75MG CAPSULE PO SCH ×2 (09:00→20:11)
[2022-02-27] MEDS: CARVEDILOL 12.5MG TABLET PO SCH ×2 (09:40→20:11)
[2022-02-27] MEDS: CALCIUM CARBONATE 500MG TABLET CHEW PO SCH ×2 (09:40→18:51)
[2022-02-27] MEDS: CALCITRIOL 0.25MCG CAPSULE PO SCH (09:41)
[2022-02-27] MEDS ORDERED: NALOXONE HCL 0.4MG/ML VIAL IV PRN (11:15)
[2022-02-27 12:00] VITALS: BP 111/48
[2022-02-27] MEDS: HYDROMORPHONE HCL/PF 2MG/ML CPJ IV PRN ×2 (13:03→20:13)
[2022-02-27 15:55] LABS: HEMOGLOBIN. 7.7 g/dL (12.0-16.0); MEAN CORPUSCULAR HEMOGLOBIN 28.9 pg (28.0-32.0); MEAN CORPUSCULAR VOLUME 90.2 fL (81.0-99.0); MEAN PLATELET VOLUME 9.2 fl (7.4-10.4); PLATELET 151 x1000/uL (130-400); RED BLOOD CELL COUNT 2.66 mill/uL (4.2-5.4); RED CELL DISTRIBUTION WIDTH 18.4 % (11.6-14.6)
[2022-02-27 16:00] VITALS: BP 120/50
[2022-02-27 16:04] LABS: PHOSPHORUS 3.5 mg/dL (2.5-4.9)
[2022-02-27 16:49] LABS: PLATELET ESTIMATE NORMAL
[2022-02-27 20:00] VITALS: BP 133/80
[2022-02-27] MEDS: PANTOPRAZOLE SODIUM 40 MG/VIAL IV SCH (20:11)
[2022-02-28] VITALS: BP 140/62
[2022-02-28] MEDS: IPRATROPIUM/ALBUTEROL 0.5-3(2.5)MG/3ML NEB HHN SCH ×4 (02:16→12:08)
[2022-02-28 04:00] VITALS: BP 116/55
[2022-02-28] MEDS: CLONIDINE 0.1MG TABLET PO SCH (05:29)
[2022-02-28] MEDS: HYDROMORPHONE HCL/PF 2MG/ML CPJ IV PRN ×2 (05:29→12:29)
[2022-02-28] MEDS: NIFEDIPINE XL 60MG TAB PO SCH (05:29)
[2022-02-28 06:51] VITALS: BP 139/69
[2022-02-28] MEDS: CARVEDILOL 12.5MG TABLET PO SCH (09:00)
[2022-02-28] MEDS: PREGABALIN 75MG CAPSULE PO SCH (09:00)
[2022-02-28] MEDS ORDERED: CLONIDINE 0.1MG TABLET PO SCH (09:00)
[2022-02-28] MEDS: ENOXAPARIN 30MG/0.3ML SYR SUBCUT SCH (09:00)
[2022-02-28] MEDS: METHYLPREDNISOLONE SOD SUCC 40 MG/ML VIAL IV SCH ×2 (09:00→09:25)
[2022-02-28] MEDS: CALCIUM CARBONATE 500MG TABLET CHEW PO SCH (09:25)
[2022-02-28] MEDS: CALCITRIOL 0.25MCG CAPSULE PO SCH (09:25)
[2022-02-28 09:39] LABS: HEMATOCRIT. 27.2 % (36.0-48.0); HEMOGLOBIN. 8.7 g/dL (12.0-16.0); MEAN CORPUSCULAR HEMOGLOBIN 28.9 pg (28.0-32.0); MEAN PLATELET VOLUME 9.2 fl (7.4-10.4); PLATELET 181 x1000/uL (130-400); RED BLOOD CELL COUNT 3.02 mill/uL (4.2-5.4); RED CELL DISTRIBUTION WIDTH 18.5 % (11.6-14.6)
[2022-02-28 09:52] LABS: PHOSPHORUS 4.2 mg/dL (2.5-4.9)
[2022-02-28 12:00] VITALS: BP 136/69
[2022-02-28 12:29] VITALS: BP 139/69
[2022-02-28] MEDS ORDERED: EPOETIN ALFA-EPBX 4,000 UNIT/ML VIAL SUBCUT SCH (21:00)
[2022-03-01 12:14] LABS: PLATELET ESTIMATE NORMAL
== END 2022-02-28 15:30 | disposition home or self-care (01) | DRG 871 ==
LOC: ER 13:58 → MICUSO 17:21 → EDBEDREQ 17:32 → EDBEDREQTM 17:32 → EDBEDREQSVC 17:32 → MICUNO 02-20 15:00 → 7WST 02-22 18:32
PROVIDERS: ADMIT Internal Medicine; ATTEND Internal Medicine
PROC: 5A1945Z Respiratory Ventilation, 24-96 Consecutive Hours (ICD-10-PCS; principal; 2022-02-19)
PROC: 0BH17EZ Insertion of Endotracheal Airway into Trachea, Via Natural or Artificial Opening (ICD-10-PCS; 2022-02-19)
PROC: 5A1D70Z Performance of Urinary Filtration, Intermittent, Less than 6 Hours Per Day (ICD-10-PCS; 2022-02-19)
PROC: 5A1D70Z Performance of Urinary Filtration, Intermittent, Less than 6 Hours Per Day (ICD-10-PCS; 2022-02-21)
PROC: 5A1D70Z Performance of Urinary Filtration, Intermittent, Less than 6 Hours Per Day (ICD-10-PCS; 2022-02-23)
PROC: 5A1D70Z Performance of Urinary Filtration, Intermittent, Less than 6 Hours Per Day (ICD-10-PCS; 2022-02-25)
DX: A41.9 Sepsis, unspecified organism (principal); G92.8 Other toxic encephalopathy; I50.31 Acute diastolic (congestive) heart failure; J96.00 Acute respiratory failure, unspecified whether with hypoxia or hypercapnia; N18.6 End stage renal disease; J18.9 Pneumonia, unspecified organism; E87.2 Acidosis; I13.2 Hypertensive heart and chronic kidney disease with heart failure and with stage 5 chronic kidney disease, or end stage renal disease; Z99.11 Dependence on respirator [ventilator] status; J44.1 Chronic obstructive pulmonary disease with (acute) exacerbation; J44.0 Chronic obstructive pulmonary disease with (acute) lower respiratory infection; D63.1 Anemia in chronic kidney disease; E78.5 Hyperlipidemia, unspecified; E87.5 Hyperkalemia; I16.0 Hypertensive urgency; Z20.822 Contact with and (suspected) exposure to COVID-19; I27.20 Pulmonary hypertension, unspecified; E83.51 Hypocalcemia; K21.9 Gastro-esophageal reflux disease without esophagitis; G62.9 Polyneuropathy, unspecified; G89.29 Other chronic pain; F32.A Depression, unspecified; F17.200 Nicotine dependence, unspecified, uncomplicated; Z88.0 Allergy status to penicillin; Z88.8 Allergy status to other drugs, medicaments and biological substances; Z91.19 Patient's noncompliance with other medical treatment and regimen; Z99.2 Dependence on renal dialysis; Z90.49 Acquired absence of other specified parts of digestive tract; Z79.899 Other long term (current) drug therapy; Z90.710 Acquired absence of both cervix and uterus; Z82.49 Family history of ischemic heart disease and other diseases of the circulatory system
CPT/HCPCS: 31500; 36415; 36600; 71045; 80048; 80053; 80202; 80305; 80320; 81003; 82375; 82805; 82962; 83036; 83605; 83735; 84100; 84484; 85025; 85027; 86705; 86709; 86803; 87340; 87426; 92610; 93005; 93970; 94002; 94003; 94640; 99291; C1893; C9113; J0360; J0885; J1170; J1650; J1815; J2704; J2920; J3370; J3490; J7060; G0480